=== PATIENT | female | born 1970 | race Hispanic/Latino ===

== ENCOUNTER 2020-10-01 08:21 | Inpatient (IN) | payer SELFPAY ==
[2020-10-01] MEDS ORDERED: ONDANSETRON 4 MG/2 ML VIAL ONE ×3 (09:50→16:00)
[2020-10-01] MEDS ORDERED: MORPHINE 4 MG/ML SYR ONE (09:50)
[2020-10-01] MEDS ORDERED: CEFAZOLIN/SWI 1gm 2 GM/20 ML SYR ONE (10:37)
[2020-10-01] MEDS ORDERED: HYDROMORPHONE HCL 1 MG/ML INJ ONE (10:50)
--- NOTE | 2020-10-01 11:01 | EDPHYS ---
Physician Documentation [facility] Name: Maite Dumont Age: 50 yrs Sex: Female : 1970 Arrival Date: 10/01/2020 Time: 08:57 Bed 8 Private MD: ED Physician Juan Carlos Albarran HPI: 10/01 10:26 This 50 yrs old Female presents to ER via EMS with complaints of Ankle Injury. ma2 10:26 The patient presents with decreased range of motion, a deformity, an injury. The ma2 complaints affect the right ankle. Associated signs and symptoms: Pertinent negatives: nausea, rash, tingling. Severity of symptoms: At their worst the symptoms were moderate, in the emergency department the symptoms are unchanged. The patient has not experienced similar symptoms in the past. tripped and fell, has right ankle pain . Historical: - Allergies: 09:00 No Known Allergies; hb - Immunization history:: Adult Immunizations up to date. - Social history:: Smoking status: Patient denies any tobacco usage or history of. Patient/guardian denies using alcohol, street drugs, The patient lives with family. - Family history:: not pertinent. ROS: 10:26 Constitutional: Negative for fever, chills, and weight loss, Eyes: Negative for injury, ma2 pain, redness, and discharge. 10:26 All other systems are negative. Exam: 10:26 Constitutional: This is a well developed, well nourished patient who is awake, alert, ma2 and in no acute distress. Chest/axilla: Normal chest wall appearance and motion. Nontender with no deformity. No lesions are appreciated. Cardiovascular: Regular rate and rhythm with a normal S1 and S2. No gallops, murmurs, or rubs. Normal PMI, no JVD. No pulse deficits. Respiratory: Lungs have equal breath sounds bilaterally, clear to auscultation and percussion. No rales, rhonchi or wheezes noted. No increased work of breathing, no retractions or nasal flaring. Abdomen/GI: Soft, non-tender, with normal bowel sounds. No distension or tympany. No guarding or rebound. No evidence of tenderness throughout. Back: No spinal tenderness. No costovertebral tenderness. Full range of motion. Skin: has puncture wound to medial aspect of right ankle, Warm, dry with normal turgor. Normal color with no rashes, no lesions, and no evidence of cellulitis. MS/ Extremity: right ankle swelling and pain, Pulses intact in pd and pd abd equal, no cyanosis. Neurovascular intact. Full, normal range of motion. Neuro: Awake and alert, GCS 15, oriented to person, place, time, and situation. Cranial nerves II-XII grossly intact. Motor strength 5/5 in all extremities. Sensory grossly intact. Cerebellar exam normal. Normal gait. Vital Signs: 08:58 BP 148 / 88; Pulse 68; Resp 16; Temp 97.8; Pulse Ox 100% on R/A; Pain 10/10; hb 09:45 BP 113 / 76; Pulse 55; Resp 20; Temp 98; Pulse Ox 96% ; sv 10:45 BP 152 / 86; Pulse 64; Resp 16; Temp 97.8; Pulse Ox 99% on R/A; Pain 5/10; hb Trauma Score (Adult): 09:45 Eye Response: spontaneous(1); Verbal Response: oriented(1); Motor Response: obeys sv commands(2); Systolic BP: > 89 mm Hg(4); Respiratory Rate: 10 to 29 per min(4); Thaddeus Score: 15; Trauma Score: 12 MDM: 08:59 Patient medically screened. ma2 10:54 Differential diagnosis: fracture, sprain, penetrating trauma, arthritis, cellulitis. ma2 Data reviewed: vital signs, nurses notes. Counseling: I had a detailed discussion with the patient and/or guardian regarding: the historical points, exam findings, and any diagnostic results supporting the discharge/admit diagnosis, the presence of at least one elevated blood pressure reading (>120/80) during this emergency department visit, the need for outpatient follow up. Response to treatment: the patient's symptoms have markedly improved after treatment. ED course: patient has open right ankle, discussed with dr. oquendo, he will take her to or, recommended admission to hospitalist . 10/01 10:54 Order name: CBC with Diff ma2 10/01 10:54 Order name: CMP ma2 10/01 11:33 Order name: Type and Screen EDMS 10/01 11:34 Order name: Protime (+INR) EDMS 10/01 11:34 Order name: PTT, Activated Partial Thromb EDMS 10/01 11:34 Order name: Vancomycin Level Trough EDMS 10/01 11:34 Order name: Vancomycin Peak EDMS 10/01 11:34 Order name: CBC with Automated Diff EDMS 10/01 11:34 Order name: CBC with Automated Diff EDMS 10/01 11:34 Order name: Comprehensive Metabolic Panel EDMS 10/01 11:34 Order name: Comprehensive Metabolic Panel EDMS 10/01 11:34 Order name: Magnesium EDMS 10/01 11:34 Order name: Magnesium EDMS 10/01 11:34 Order name: Phosphorus EDMS 10/01 09:22 Order name: Ankle Right 3 View XRAY oh2 10/01 09:22 Order name: Foot Right 3 View XRAY oh2 10/01 10:54 Order name: EKG; Complete Time: 10:54 oh2 10/01 10:54 Order name: Chest Single View XRAY oh2 10/01 11:34 Order name: Phosphorus EDMS 10/01 11:34 Order name: Protime (+INR) EDMS 10/01 11:34 Order name: Protime (+INR) EDMS 10/01 11:34 Order name: PTT, Activated Partial Thromb EDMS 10/01 11:34 Order name: PTT, Activated Partial Thromb EDMS 10/01 11:34 Order name: Urinalysis EDMS 10/01 11:51 Order name: COVID-19 : Document "Date of Symptom Onset" if Symptomatic. 3 10/01 09:40 Order name: IV Start; Complete Time: 09:40 10/01 10:54 Order name: NPO; Complete Time: 10:56 [facility] 10/01 11:34 Order name: CONS Pharmacy Consult EDMS 10/01 11:34 Order name: CONS Physician Consult ED[facility] 10/01 11:34 Order name: Heart Healthy EDMS Administered Medications: 09:40 Drug: Zofran (Ondansetron) 4 mg Route: IVP; Site: right antecubital; hb 10:13 Follow up: Response: No adverse reaction hb 09:41 Drug: morphine 4 mg Route: IVP; Site: right antecubital; hb 10:13 Follow up: Response: No adverse reaction hb 10:22 Drug: Ancef 2 grams Route: IVPB; Infused Over: 30 mins; Site: right antecubital; hb 11:12 Follow up: Response: No adverse reaction; IV Status: Completed infusion; IV Intake: 20mlhb 10:42 Drug: Dilaudid 1 mg Route: IVP; Site: right antecubital; hb 11:11 Follow up: Response: No adverse reaction hb 11:17 Drug: D5-NS 1000 ml Route: IV; Rate: 125 ml/hr; Site: right antecubital; hb 12:10 Follow up: Response: No adverse reaction; IV Status: Completed infusion; IV Intake: hb 125ml Disposition: 10/01/20 11:00 Hospitalization ordered by Juan Carlos Feldman for Inpatient Admission. Preliminary diagnosis are Unspecified open wound, right ankle, Bimalleolar fracture of lower leg - right ankle . - Bed requested for Telemetry/MedSurg (Inpatient). - Status is Inpatient Admission. hb - Condition is Stable. - Problem is new. - Symptoms are unchanged. Signatures: Dispatcher [employer] EDMS Niki Shelby RN RN Juan Carlos Albarran MD MD ma2 Corrections: (The following items were deleted from the chart) 10:55 10:26 Constitutional: This is a well developed, well nourished patient who is awake, ma2 alert, and in no acute distress. Chest/axilla: Normal chest wall appearance and motion. Nontender with no deformity. No lesions are appreciated. Cardiovascular: Regular rate and rhythm with a normal S1 and S2. No gallops, murmurs, or rubs. Normal PMI, no JVD. No pulse deficits. Respiratory: Lungs have equal breath sounds bilaterally, clear to auscultation and percussion. No rales, rhonchi or wheezes noted. No increased work of breathing, no retractions or nasal flaring. Abdomen/GI: Soft, non-tender, with normal bowel sounds. No distension or tympany. No guarding or rebound. No evidence of tenderness throughout. Back: No spinal tenderness. No costovertebral tenderness. Full range of motion. Skin: Warm, dry with normal turgor. Normal color with no rashes, no lesions, and no evidence of cellulitis. MS/ Extremity: right ankle swelling and pain, Pulses intact in pd and pd abd equal, no cyanosis. Neurovascular intact. Full, normal range of motion. Neuro: Awake and alert, GCS 15, oriented to person, place, time, and situation. Cranial nerves II-XII grossly intact. Motor strength 5/5 in all extremities. Sensory grossly intact. Cerebellar exam normal. Normal gait. ma2 12:13 11:00 Hospitalization Ordered by Juan Carlos Feldman MD for Inpatient Admission. Preliminary hb diagnosis is Unspecified open wound, right ankle; Bimalleolar fracture of lower leg - right ankle . Bed requested for Telemetry/MedSurg (Inpatient). Status is Inpatient Admission. Condition is Stable. Problem is new. Symptoms are unchanged. ma2
--- NOTE | 2020-10-01 11:01 | ER ---
Nurse's Notes [facility] Name: Maite Dumont Age: 50 yrs Sex: Female : 1970 Arrival Date: 10/01/2020 Time: 08:57 Bed 8 Private MD: Diagnosis: Unspecified open wound, right ankle;Bimalleolar fracture of lower leg-right ankle Presentation: 10/01 08:58 Chief complaint: EMS states: Slipped on tile floor while carrying out the trash, c/o hb right ankle pain 10/10. Obvious deformity noted to right ankle. Splint in place. Coronavirus screen: At this time, the client does not indicate any symptoms associated with coronavirus-19. Ebola Screen: No symptoms or risks identified at this time. Initial Sepsis Screen: Does the patient meet any 2 criteria? No. Patient's initial sepsis screen is negative. Does the patient have a suspected source of infection? No. Patient's initial sepsis screen is negative. Risk Assessment: Do you want to hurt yourself or someone else? Patient reports no desire to harm self or others. Onset of symptoms was October 01, 2020. 08:58 Method Of Arrival: EMS: [facility] hb 08:58 Acuity: ERIN 3 hb Triage Assessment: 09:00 General: Appears in no apparent distress. uncomfortable, Behavior is calm, cooperative. hb Pain: Pain currently is 10 out of 10 on a pain scale. EENT: No signs and/or symptoms were reported regarding the EENT system. Neuro: Level of Consciousness is awake, alert, obeys commands, Oriented to person, place, time, situation. Cardiovascular: Capillary refill < 3 seconds Patient's skin is warm and dry. Respiratory: Respiratory effort is even, unlabored, Respiratory pattern is regular, symmetrical. GI: No signs and/or symptoms were reported involving the gastrointestinal system. : No signs and/or symptoms were reported regarding the genitourinary system. Derm: Skin is pink, warm \T\ dry. Musculoskeletal: Reports pain in right ankle. Historical: - Allergies: 09:00 No Known Allergies; hb - Immunization history:: Adult Immunizations up to date. - Social history:: Smoking status: Patient denies any tobacco usage or history of. Patient/guardian denies using alcohol, street drugs, The patient lives with family. - Family history:: not pertinent. Screenin:01 Abuse screen: Denies threats or abuse. Denies injuries from another. Nutritional hb screening: No deficits noted. Tuberculosis screening: No symptoms or risk factors identified. Fall Risk None identified. Assessment: 09:01 General: see triage assessment. hb 10:00 Reassessment: Patient appears in no apparent distress at this time. Patient and/or hb family updated on plan of care and expected duration. Pain level reassessed. Patient is alert, oriented x 3, equal unlabored respirations, skin warm/dry/pink. 11:00 Reassessment: Patient appears in no apparent distress at this time. Patient and/or hb family updated on plan of care and expected duration. Pain level reassessed. Patient is alert, oriented x 3, equal unlabored respirations, skin warm/dry/pink. 12:00 Reassessment: Patient appears in no apparent distress at this time. No changes from previously documented assessment. Patient and/or family updated on plan of care and expected duration. Pain level reassessed. Patient is alert, oriented x 3, equal unlabored respirations, skin warm/dry/pink. Vital Signs: 08:58 BP 148 / 88; Pulse 68; Resp 16; Temp 97.8; Pulse Ox 100% on R/A; Pain 10/10; hb 09:45 BP 113 / 76; Pulse 55; Resp 20; Temp 98; Pulse Ox 96% ; sv 10:45 BP 152 / 86; Pulse 64; Resp 16; Temp 97.8; Pulse Ox 99% on R/A; Pain 5/10; hb Trauma Score (Adult): 09:45 Eye Response: spontaneous(1); Verbal Response: oriented(1); Motor Response: obeys sv commands(2); Systolic BP: > 89 mm Hg(4); Respiratory Rate: 10 to 29 per min(4); Creswell Score: 15; Trauma Score: 12 ED Course: 08:57 Patient arrived in ED. hb 08:59 Juan Carlos Albarran MD is Attending Physician. ma2 09:00 Triage completed. hb 09:00 Arm band placed on. hb 09:01 Patient has correct armband on for positive identification. Bed in low position. Call light in reach. 09:39 Niki Shelby RN is Primary Nurse. hb 09:41 Inserted saline lock: 20 gauge in right antecubital area, using aseptic technique. hb 10:[address] Willis with Dr. Albarran for patient transfer consultation. eb 10:37 Ankle Right 3 View XRAY In Process Unspecified. EDMS 11:00 Juan Carlos Feldman MD is Hospitalizing Provider. ma2 11:16 Chest Single View XRAY In Process Unspecified. EDMS 12:10 No provider procedures requiring assistance completed. Patient admitted, IV remains in hb place. Administered Medications: 09:40 Drug: Zofran (Ondansetron) 4 mg Route: IVP; Site: right antecubital; hb 10:13 Follow up: Response: No adverse reaction hb 09:41 Drug: morphine 4 mg Route: IVP; Site: right antecubital; hb 10:13 Follow up: Response: No adverse reaction hb 10:22 Drug: Ancef 2 grams Route: IVPB; Infused Over: 30 mins; Site: right antecubital; hb 11:12 Follow up: Response: No adverse reaction; IV Status: Completed infusion; IV Intake: 20mlhb 10:42 Drug: Dilaudid 1 mg Route: IVP; Site: right antecubital; hb 11:11 Follow up: Response: No adverse reaction hb 11:17 Drug: D5-NS 1000 ml Route: IV; Rate: 125 ml/hr; Site: right antecubital; hb 12:10 Follow up: Response: No adverse reaction; IV Status: Completed infusion; IV Intake: hb 125ml Intake: 09:45 PO: 0ml; Total: 0ml. sv 11:12 IV: 20ml; Total: 20ml. hb 12:10 IV: 125ml; Total: 145ml. hb Output: 09:45 Urine: 0ml; Total: 0ml. sv Outcome: 11:00 Decision to Hospitalize by Provider. ma2 12:10 Admitted to OR accompanied by nurse, via stretcher, with chart. hb 12:10 Condition: stable 12:10 Instructed on the need for admit, Demonstrated understanding of instructions. 12:13 Patient left the ED. hb Signatures: Dispatcher [employer] Marline Ryder RN RN Niki Shelby RN RN Juan Carlos Albarran MD MD [facility] Candice Saldana
[2020-10-01] MEDS ORDERED: D5 0.9 NS 1,000 ML IV ONE (11:23)
[2020-10-01] MEDS ORDERED: ACETAMINOPHEN 500 MG TAB PO PRN (11:28)
[2020-10-01] MEDS ORDERED: ONDANSETRON 4 MG/2 ML VIAL IV PRN (11:28)
[2020-10-01 11:40] LABS: Hematocrit 40.8 % (36.0-45.0); Lymphocytes % 20.1 % (15.3-44.8); MPV 8.7 fL (7.6-11.3); RBC Red Blood Cell Count 4.68 M/uL (3.86-4.86)
[2020-10-01 11:49] LABS: Albumin 3.3 g/dL (3.4-5.0); Bilirubin Total 0.2 mg/dL (0.2-1.0); Potassium 3.9 mmol/L (3.5-5.1); Protein, Total 7.9 g/dL (6.4-8.2)
[2020-10-01] MEDS: NA CHLORIDE 0.9% 1,000 ML IV SCH (12:00)
[2020-10-01] MEDS ORDERED: PIPER/TAZO/NS 3.375gm 3.375 GM/100 ML BAG IVPB ONE (12:00)
[2020-10-01] MEDS ORDERED: LIDOCAINE 2% MPF 5 ML VIAL ONE (12:12)
[2020-10-01] MEDS ORDERED: propofoL 200 MG/20 ML VIAL IV ONE (12:12)
[2020-10-01] MEDS ORDERED: FENTANYL CITR 100 MCG/2 ML ONE ×2 (12:12→14:36)
--- NOTE | 2020-10-01 12:32 | RAD REPORT ---
EXAM DESCRIPTION: RAD - Ankle Right 3 View - 10/01/2020 9:54 am CLINICAL HISTORY: DEFORMITY COMPARISON: No comparisons FINDINGS: Oblique fracture is present in the distal fibula immediately proximal to the tibiotalar marshall int line. Transverse fracture is present through the medial malleolus. There is approximately 6 mm of lateral displacement of the talar dome relative to the tibial plafond. No posterior malleolus fractu re seen. Patient has a large plantar spur. No joint effusion seen. Prominent anterior and lateral sof t tissue swelling. IMPRESSION: Distal right fibular fracture and medial malleolus fracture with approximately 6 mm late ral displacement of the dome of the talus.
--- NOTE | 2020-10-01 12:35 | RAD REPORT ---
EXAM DESCRIPTION: RAD - Chest Single View - 10/01/2020 11:16 am CLINICAL HISTORY: pre-op, ankle fracture COMPARISON: None TECHNIQUE: AP portable chest image was obtained 10/01/2020 11:16 am . FINDINGS: Lungs are clear. Heart and vasculature are normal. No measurable pleural effusion and no p neumothorax. No acute bony abnormality seen. No acute aortic findings suspected. IMPRESSION: No acute cardiopulmonary process.
[2020-10-01] MEDS ORDERED: VANCOMYCIN 1.25 GM in NA CHLORIDE 0.9% 250 ML IVPB SCH (13:00)
[2020-10-01] MEDS: ENOXAPARIN 40 MG/0.4 ML SQ SCH (13:00)
[2020-10-01] MEDS ORDERED: CEFAZOLIN SODIUM 1 GM/VIAL ONE (13:14)
[2020-10-01] MEDS ORDERED: KETOROLAC 30 MG/ML INJ ONE (13:16)
[2020-10-01] MEDS ORDERED: dexAMETHasone 10 MG/ML VIAL ONE (13:16)
[2020-10-01] MEDS ORDERED: KETAMINE HCL 500 MG/5 ML VIAL ONE (13:25)
--- NOTE | 2020-10-01 14:44 | CON ---
Date of Consultation: 10/01/2020 Reason For Consultation: Right open ankle fracture. History Of Present Illness: She is a 50-year-old female who presented to the ER today after sustaining a fall and twisting injury to her right ankle with subsequent pain and deformity to her right ankle. She was brought in the ER, had x-rays, which demonstrated a bimalleolar ankle fracture and a small poke hole for anterior medial ankle consistent with an open fracture pattern. The patient received antibiotics in the emergency room. She denies any other musculoskeletal complaints at this time. Review of Systems: As above, otherwise negative. Past Medical History: Includes hypertension. Physical Examination: General: No apparent distress. HEENT: Normocephalic, atraumatic. Neck: Supple. Cardiovascular: Brisk cap refill to all digits. Chest: Nonlabored breathing. Abdomen: Nondistended. Psychiatric: Responsive to exam. Musculoskeletal: Right ankle tenderness to palpation over the medial and lateral ankle, mild swelling, approximately a 2 mm poke hole over the anterior medial ankle. No active bleeding noted at this time. Palpable dorsalis pedis and posterior tibial pulses. No tenderness to palpation of the knee or range of motion of the hip. Left lower extremity functional range of motion without pain. No gross deformities. No obvious dislocation. Bilateral upper extremities, functional range of motion without pain. No gross deformities. No obvious dislocations. Diagnostic Studies: X-rays of the right ankle demonstrate a bimalleolar ankle fracture consistent with SER IV fracture pattern. Assessment And Plan: Maite is a 50-year-old female with a grade 1 open bimalleolar right ankle fracture. I discussed with the patient at length risks, benefits associated with operative and nonoperative treatment including pain, bleeding, infection as well as nonunion. She expressed understanding. We will proceed with I and D and ORIF of her right bimalleolar ankle fracture. She will be nonweightbearing for 6 weeks. She has already been given antibiotics in the ER. CV/MODL Voice ID: [id number] Report ID: [id number] NICHOLAS
--- NOTE | 2020-10-01 15:24 | RAD REPORT ---
EXAM DESCRIPTION: RAD - Ankle Right 2 View - 10/01/2020 3:19 pm FINDINGS: They are 48 portable C-arm views obtained during fluoroscopic assisted placement of fractu re fixation hardware. Images show stepwise placement of hardware. No suspicious or unexpected finding . Fluoro time was 1.4 minutes. Calculated cumulative dose was 2.19 mGy.
--- NOTE | 2020-10-01 15:34 | P.BOP ---
Preoperative diagnosis: right open bimalleolar ankle fracture Postoperative diagnosis: same Primary procedure: irrigation and debridement right open bimalleolar ankle fracture Secondary procedure: open reduction internal fixation right bimalleolar ankle fracture Estimated blood loss: 20 cc Specimen: none Findings: see dictation Anesthesia: General Complications: None Implants: 6 hole third tubular plate, Acumed medial malleolus hook plate Fluids & blood products: per anesthesia record; TT: 118 @ 300 mmHg Transferred to: Recovery Room Condition: Good
[2020-10-01] MEDS ORDERED: ONDANSETRON 4 MG/2 ML VIAL IV ONE (15:45)
[2020-10-01] MEDS ORDERED: HYDROMORPHONE HCL 2 MG/ML inj IV ONE (15:46)
[2020-10-01] MEDS ORDERED: DOCUSATE NA 100 MG CAP PO PRN (15:48)
[2020-10-01] MEDS ORDERED: TRAMADOL HCL 50 MG TAB PO PRN (15:48)
[2020-10-01] MEDS: HYDROMORPHONE HCL 2 MG/ML inj ONE ×3 (15:52→16:12)
[2020-10-01] MEDS ORDERED: MORPHINE 2 MG/ML SYR IV PRN (15:56)
[2020-10-01] MEDS ORDERED: Ringers Lactate 1,000 ML IV ONE (16:10)
--- NOTE | 2020-10-01 16:32 | RAD REPORT ---
EXAM DESCRIPTION: RAD - Ankle Right 2 View - 10/01/2020 4:12 pm CLINICAL HISTORY: postop, ankle fracture COMPARISON: Ankle Right 2 View dated 10/01/2020 FINDINGS: AP and cross-table lateral views of the right ankle pain following placement of hardware. Cast material is in place. Surgical hardware is in place fixing previously detailed distal fibula and medial malleolus fractures. No suspicious or unexpected finding.
[2020-10-01 19:38] VITALS: BMI 42.5
[2020-10-01] MEDS: CEFAZOLIN/SWI 2gm 2 GM/20 ML SYR IVP SCH (19:50)
[2020-10-02] MEDS: CEFAZOLIN/SWI 2gm 2 GM/20 ML SYR IVP SCH ×2 (01:01→06:27)
[2020-10-02] MEDS: NA CHLORIDE 0.9% 1,000 ML IV SCH ×3 (01:20→15:59)
[2020-10-02 05:56] LABS: Absolute Lymphocytes (CBC) 2.1 K/uL (0.7-4.9); Basophils % 0.7 % (0-1.3); Hematocrit 37.1 % (36.0-45.0); Lymphocytes % 13.2 % (15.3-44.8); MPV 8.7 fL (7.6-11.3)
[2020-10-02 06:10] LABS: Albumin 2.9 g/dL (3.4-5.0); Bilirubin Total 0.2 mg/dL (0.2-1.0); Phosphorus 3.3 mg/dL (2.5-4.9); Potassium 3.6 mmol/L (3.5-5.1); Protein, Total 6.8 g/dL (6.4-8.2)
[2020-10-02] MEDS: ENOXAPARIN 40 MG/0.4 ML SQ SCH (08:58)
[2020-10-02] MEDS ORDERED: POTASSIUM CL SA 10 MEQ TAB PO ONE (09:00)
--- NOTE | 2020-10-02 09:12 | P.HP ---
Certification for Inpatient Patient admitted to: Inpatient With expected LOS: >2 Midnights Patient will require the following post-hospital care: None Practitioner: I am a practitioner with admitting privileges, knowledge of patient current condition, hospital course, and medical plan of care. Services: Services provided to patient in accordance with Admission requirements found in Title 42 Section 412.3 of the Code of Federal Regulations Patient History Date of Service: 10/01/20 Reason for admission: Patient status post fall with open ankle fracture History of Present Illness: Patient is a 50-year-old female who came to the hospital after falling. 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 Her ankle twisted underneath her and she was not able to ambulate. She noticed that she had a sore on her ankle and and was hurting severely. She was brought into the emergency room and x-rays revealed an open ankle fracture. Patient has a history of hypertension but no chest pain. She has never had any cardiac issues. She will be low risk for any cardiopulmonary complications. Spoke with orthopedic and plan is take her to the operating room shortly. Allergies No Known Allergies Allergy (Verified 10/01/20 13:37) Home Medications: Losartan Potassium [Cozaar] 50 mg PO BID 10/01/20 - Past Medical/Surgical History Has patient received pneumonia vaccine in the past: No Diabetic: No -: HTN -: X2 -: Cholecystectomy - Family History Father Family History: Reviewed- Non-Contributory - Social History Smoking Status: Never smoker Alcohol use: No CD- Drugs: No Place of Residence: Home Review of Systems 10-point ROS is otherwise unremarkable Physical Examination - Vital Signs Temperature: 97.5 F Blood Pressure: 155/84 Pulse: 68 Respirations: 16 Pulse Ox (%): 96 - Physical Exam General: Alert, In no apparent distress, Oriented x3 HEENT: Atraumatic, PERRLA, Mucous membr. moist/pink, EOMI, Sclerae nonicteric Neck: Supple, 2+ carotid pulse no bruit, No LAD, Without JVD or thyroid abnormality Respiratory: Diminished, Crackles/rales Cardiovascular: Regular rate/rhythm, Normal S1 S2, Systolic murmur Gastrointestinal: Normal bowel sounds, Soft and benign, Non-distended, No tenderness Musculoskeletal: No clubbing, No swelling, No tenderness Integumentary: No rashes Neurological: Normal gait, Normal speech, Normal strength at 5/5 x4 extr, Normal tone, Sensation intact, Cranial nerves 3-12 intact, Normal affect Lymphatics: No axilla or inguinal lymphadenopathy - Studies Laboratory Data (last 24 hrs) 10/01/20 11:15: Sodium 140, Potassium 3.9, BUN 12, Creatinine 0.79, Glucose 127 H, Total Bilirubin 0.2, AST 19, ALT 21, Alkaline Phosphatase 109 10/01/20 11:15: WBC 14.90 H, Hgb 13.3, Hct 40.8, Plt Count 420 H Assessment & Plan - Problems (Diagnosis) (1) Open right ankle fracture Current Visit: Yes Status: Acute (2) History of hypertension Current Visit: Yes Status: Acute - Plan Plan: 1. Continue with gentle hydration 2. Continue with IV antibiotics 3. Continue with pain control 4. Resume blood pressure medication 5. Monitor on telemetry 6. GI and DVT prophylaxis Discharge Plan: Home Plan to discharge in: Greater than 2 days - Advance Directives Does patient have a Living Will: No Does patient have a Durable POA for Healthcare: No - Code Status/Comfort Care Code Status Assessed: Yes Code Status: Full Code Critical Care: No Time Spent Managing PTS Care (In Minutes): 45
--- NOTE | 2020-10-02 09:16 | P.PN ---
Subjective Date of Service: 10/02/20 Patient is feeling better. Pain is better controlled. Continue with antibiotics and blood pressure is elevated and resume BP medication. Consultants and recommendations. Possible discharge over the next 48 hrs. Review of Systems 10-point ROS is otherwise unremarkable Physical Examination - Vital Signs Temperature: 97.5 F Blood Pressure: 155/84 Pulse: 68 Respirations: 16 Pulse Ox (%): 96 - Physical Exam General: Alert, In no apparent distress, Oriented x3 HEENT: EOMI Respiratory: Clear to auscultation bilaterally, Normal air movement Cardiovascular: Regular rate/rhythm, Normal S1 S2, No murmurs Gastrointestinal: Normal bowel sounds, Soft and benign, Non-distended, No tenderness Musculoskeletal: No clubbing, No swelling, No tenderness Neurological: Sensation intact, Cranial nerves 3-12 intact - Studies Laboratory Data (last 24 hrs) 10/01/20 11:15: Sodium 140, Potassium 3.9, BUN 12, Creatinine 0.79, Glucose 127 H, Total Bilirubin 0.2, AST 19, ALT 21, Alkaline Phosphatase 109 10/01/20 11:15: WBC 14.90 H, Hgb 13.3, Hct 40.8, Plt Count 420 H Medications List Reviewed: Yes Assessment & Plan - Problems (Diagnosis) (1) Open right ankle fracture Current Visit: Yes Status: Acute (2) History of hypertension Current Visit: Yes Status: Acute - Plan Plan: Continue with plan of care as mentioned below 1. Continue with gentle hydration 2. Continue with IV antibiotics 3. Continue with pain control 4. Resume blood pressure medication 5. Monitor on telemetry 6. GI and DVT prophylaxis Discharge Plan: Home Plan to discharge in: Greater than 2 days - Advance Directives Does patient have a Living Will: No Does patient have a Durable POA for Healthcare: No - Code Status/Comfort Care Code Status: Full Code Critical Care: No Time Spent Managing PTS Care (In Minutes): 35
[2020-10-02] MEDS: LOSARTAN POTASSIUM 50 MG TABLET PO SCH ×2 (10:17→22:07)
--- NOTE | 2020-10-02 17:22 | P.PN ---
Subjective Date of Service: 10/02/20 Chief Complaint: Patient status post fall with open ankle fracture Subjective: Improving, Working w/ PT pain controlled Physical Examination - Vital Signs Temperature: 97.6 F Blood Pressure: 140/65 Pulse: 67 Respirations: 16 Pulse Ox (%): 97 - Physical Exam General: Alert, In no apparent distress Musculoskeletal: Other (RLE: moves toes grossly; splint in place with mild serosanguinous drainage; bcr all digits) - Studies Medications List Reviewed: Yes Assessment And Plan - Plan Maite is a 50 yo female s/p I&D, ORIF of her right open ankle fracture -ok to d/c home tomorrow after AM PT -f/u in my clinic in 2 weeks for reevaluation, suture removal and xrays of the right ankl -remain NWB of the RLE
[2020-10-02] MEDS: HYDROCODONE/APAP 7.5/325 MG TAB PO PRN (22:07)
[2020-10-03 00:08] VITALS: O2SAT 93
[2020-10-03 04:55] LABS: Absolute Lymphocytes (CBC) 5.1 K/uL (0.7-4.9); Hematocrit 35.3 % (36.0-45.0); Lymphocytes % 35.7 % (15.3-44.8); MPV 8.8 fL (7.6-11.3); RBC Red Blood Cell Count 3.97 M/uL (3.86-4.86)
[2020-10-03 05:11] LABS: Potassium 3.8 mmol/L (3.5-5.1)
--- NOTE | 2020-10-03 07:57 | P.DS ---
Admission Date: 10/01/20 Discharge Date: 10/03/20 Primary Care Provider: none Disposition: ROUTINE DISCHARGE Discharge Condition: GOOD Reason for Admission: Patient status post fall with open ankle fracture Consultations: Orthopedics-Dr. Willis Procedures: Xray: COMPARISON: No comparisons FINDINGS: Oblique fracture is present in the distal fibula immediately proximal to the tibiotalar joint line. Transverse fracture is present through the medial malleolus. There is approximately 6 mm of lateral displacement of the talar dome relative to the tibial plafond. No posterior malleolus fracture seen. Patient has a large plantar spur. No joint effusion seen. Prominent anterior and lateral soft tissue swelling. IMPRESSION: Distal right fibular fracture and medial malleolus fracture with approximately 6 mm lateral displacement of the dome of the talus. Operative note: Date: 10/01/2020 Surgeon: Dr. Sergio Willis Preoperative diagnosis: Right open bimalleolar ankle fracture Postoperative diagnosis: Same Primary procedure: Irrigation and debridement to right open bimalleolar ankle fracture Secondary procedure: Open reduction internal fixation right bimalleolar ankle fracture Estimated blood loss: 20 cc Specimen: None Anesthesia: General Complications: None Implants: 6 hole 1thrid tubular plate, AcuMed medial malleolus hook plate Condition: Good Medical Problem List: Fall leading to open right bimalleolar ankle fracture status post irrigation/debridement of the right open malleolar ankle fracture and open reduction internal fixation right bimalleolar ankle fracture Hypertension Obesity, BMI 42.5 Brief History of Present Illness: 50-year-old female who came to the hospital after falling. 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 Her ankle twisted underneath her and she was not able to ambulate. She noticed that she had a sore on her ankle and and was hurting severely. She was brought into the emergency room and x-rays revealed an open ankle fracture. Patient has a history of hypertension but no chest pain. She has never had any cardiac issues. She will be low risk for any cardiopulmonary complications. Orthopedist was consulted to further address. Patient admitted for treatment. Hospital Course: Patient presented to the ER after a fall. Patient found to have open right bimalleolar ankle fracture. Patient was admitted for further evaluation and treatment. Patient seen and evaluated by orthopedics. Orthopedic recommended surgical intervention. Patient had irrigation debridement of the right open malleolar ankle fracture, then an open reduction internal fixation was done. Patient tolerated the procedure well. Prior to discharge physical therapy will work with patient with recommendations. Patient will need a follow up with o rthopedics in 2 weeks. Patient will need to continue with nonweightbearing on the right lower extremity. Fall precautions in place. Patient may use walker or crutches. Patient may take Tylenol or ibuprofen as needed for pain. Sutures and a recheck x-ray will be done in 2 weeks with Orthopedics. Education will be provided prior to discharge. Patient with hypertension. At discharge she will continue with her medication of losartan 50 mg 1 pill twice daily. Recommend to maintain blood pressure less 150/80. Further adjustment can be done by her PCP. Vital Signs/Physical Exam: Temp Pulse Resp BP Pulse Ox 97.5 F 59 14 127/68 93 10/03/20 04:00 10/03/20 04:00 10/03/20 04:00 10/03/20 04:00 10/03/20 04:00 General: Alert, In no apparent distress, Oriented x3, Cooperative HEENT: Atraumatic Neck: Supple Respiratory: Clear to auscultation bilaterally, Normal air movement Cardiovascular: Normal pulses, Regular rate/rhythm Gastrointestinal: Normal bowel sounds, Soft and benign, Non-distended, No tenderness, No masses, No rebound, No guarding Musculoskeletal: No erythema, No tenderness, No warmth Integumentary: Other (Bandages to the right lower extremity noted) Neurological: Normal speech, Normal strength at 5/5 x4 extr, Normal tone, Normal affect Laboratory Data at Discharge: WBC 14.20 K/uL (4.3-10.9) H 10/03/20 04:18 Hgb 11.1 g/dL (12.0-15.0) L 10/03/20 04:18 Hct 35.3 % (36.0-45.0) L 10/03/20 04:18 Plt Count 361 K/uL (152-406) 10/03/20 04:18 PT Cancelled 10/01/20 11:32 INR Cancelled 10/01/20 11:32 APTT Cancelled 10/01/20 11:32 Sodium 140 mmol/L (136-145) 10/03/20 04:18 Potassium 3.8 mmol/L (3.5-5.1) 10/03/20 04:18 BUN 14 mg/dL (7-18) 10/03/20 04:18 Creatinine 0.70 mg/dL (0.55-1.3) 10/03/20 04:18 Glucose 127 mg/dL (74-106) H 10/03/20 04:18 Phosphorus 3.3 mg/dL (2.5-4.9) 10/02/20 05:11 Magnesium 2.0 mg/dL (1.8-2.4) 10/02/20 05:11 Total Bilirubin 0.2 mg/dL (0.2-1.0) 10/02/20 05:11 AST 13 U/L (15-37) L 10/02/20 05:11 ALT 19 U/L (12-78) 10/02/20 05:11 Alkaline Phosphatase 84 U/L (45-117) 10/02/20 05:11 Home Medications: Losartan Potassium [Cozaar*] 50 mg PO BID 10/01/20 Patient Discharge Instructions: Follow up with PCP in 1 week to follow up this hospitalization. Patient presented to the ER after a fall. Patient found to have open right bimalleolar ankle fracture. Patient was admitted for further evaluation and treatment. Patient seen and evaluated by orthopedics. Orthopedic recommended surgical intervention. Patient had irrigation debridement of the right open malleolar ankle fracture, then an open reduction internal fixation was done. Patient tolerated the procedure well. Prior to discharge physical therapy will work with patient with recommendations. Patient will need a follow up with orthopedics in 2 weeks. Patient will need to continue with nonweightbearing on the right lower extremity. Fall precautions in place. Patient may use walker or crutches. Patient may take Tylenol or ibuprofen as needed for pain. Sutures and a recheck x-ray will be done in 2 weeks with Orthopedics. Education will be provided prior to discharge. Patient with hypertension. At discharge she will continue with her medication of losartan 50 mg 1 pill twice daily. Recommend to maintain blood pressure less 150/80. Further adjustment can be done by her PCP. Diet: AHA Activity: Non-weight bearing (Right lower extremity) Followup: NONE,NONE [Primary Care Provider] - Time spent managing pt's care (in minutes): 55
[2020-10-03] MEDS: LOSARTAN POTASSIUM 50 MG TABLET PO SCH (08:05)
[2020-10-03] MEDS: ENOXAPARIN 40 MG/0.4 ML SQ SCH (08:06)
[2020-10-03] MEDS: HYDROCODONE/APAP 7.5/325 MG TAB PO PRN (08:12)
[2020-10-03 08:55] VITALS: BP 118/67; TEMP 97.1
[2020-10-03] MEDS ORDERED: POTASSIUM CL SA 10 MEQ TAB PO ONE (09:00)
--- NOTE | 2020-10-03 14:12 | OP ---
Surgeon: Sergio Willis MD Postoperative Diagnosis: Right bimalleolar ankle fracture. Postoperative Diagnosis: Right bimalleolar ankle fracture. Procedure Performed: 1. Irrigation and debridement of right open bimalleolar ankle fracture. 2. Open reduction and internal fixation of right open bimalleolar ankle fracture. Anesthesia: General LMA. Fluids: Per Anesthesia record. Estimated Blood Loss: 20 cc. Complications: None, Implants: 1. Six hole third tubular plate. 2. Acumed medial ankle footplate. Tourniquet Time: 180 minutes at 300 mmHg. Indication For Procedure: Maite is a 50-year-old female, who presented to the ER today after sustaining a twisting injury to her right ankle with subsequent pain and deformity to her right ankle. She was brought to the emergency room with diagnosis of right bimalleolar ankle fracture. She continued to have a small poke hole over the anterior medial ankle consistent with grade I open fracture. She was given antibiotics in the emergency room and I was called in and I discussed with the patient at length risks and benefits associated with operative and nonoperative treatment. Given her open injury, I recommended irrigation and debridement as well as open reduction and internal fixation. She expressed understanding and elected to proceed with operative treatment. Description Of Procedure: After informed consent was obtained, the patient was identified in the preoperative holding area. The right lower extremity was marked. The patient was then brought back to the operating room, transferred to the operative table in a supine fashion and placed under general LMA anesthesia. The right lower extremity was then prepped and draped in usual sterile fashion. Time-out was initiated and correct patient and procedure were confirmed and identified. The patient did receive her preoperative prophylactic antibiotics. First, attention was taken to her open injury, which she had approximately a 2 mm poke hole over the anterior medial ankle. The laceration was extended 1 cm distally and proximally. The wound was then irrigated thoroughly with 3 L of normal saline using Cysto tubing. The bone was then debrided using a curette. Next, attention was taken to the lateral malleolus where approximately a 10 cm longitudinal incision was made over the distal fibula. Dissection was taken out of the bone. The fracture was identified. It was irrigated with normal saline. The fracture was then reduced using a pointed reduction clamp. Given the standard oblique fracture pattern, the fracture was reduced and an interfragmentary lag screw was then placed using standard AO technique. Compression was noted at the fracture site. Next, a six hole third tubular neutralization plate was placed and proper reduction and placement was confirmed using fluoroscopy. Two 4.0 cancellous screw were placed distally in unicortical fashion and three 3.5 cortical screws were placed proximally in bicortical fashion. After this was completed fluoroscopy was used to confirm reduction of the fracture both medially and laterally. The wound was then irrigated thoroughly with normal saline and pointed reduction clamp was then used to perform Cotton's test which demonstrated the syndesmosis was intact. Subcutaneous tissue was approximated using 2-0 Vicryl. Skin was approximated using 3-0 nylon. Next, attention was taken to medial malleolus where approximately a 5 cm longitudinal incision was made centered over the medial malleolus. Dissection was then taken down to the fracture. The fracture was then held, reduced with a pointed reduction clamp. The footplate was then placed, which held the reduction and this was confirmed using fluoroscopy in both AP and lateral views. The footplate was then fixed to the proximal tibia by placing a 3.5 cortical screw in bicortical fashion and a locking peg was then placed distally through the hook into the medial malleolus after the hook placement was bent into position. The wounds were then irrigated thoroughly with normal saline. Subcutaneous tissue was approximated using a 2-0 Vicryl. Skin was approximated using a 3-0 nylon. Sterile dressings were applied. The patient was placed in a posterior stirrup splint, tourniquet was let down, awakened, and transferred to PACU in stable condition. Postoperative Plan: She will be nonweightbearing on the right lower extremity. Physical therapy will be consulted to aid with mobilization and she will be okay to discharge once mobilizing normal with physical therapy. CV/MODL Voice ID: [id number] Report ID: [id number] NICHOLAS
== END 2020-10-03 13:56 | disposition home or self-care (01) | DRG 493 ==
LOC: ER 08:21 → ERHOLD 11:28 → 2ND 13:36
PROVIDERS: ADMIT Hospitalist; ATTEND Family Medicine
PROC: 0QSG04Z Reposition Right Tibia with Internal Fixation Device, Open Approach (ICD-10-PCS; principal; 2020-10-01 12:00)
DX: S82.841B Displaced bimalleolar fracture of right lower leg, initial encounter for open fracture type I or II (principal); Z68.41 Body mass index [BMI] 40.0-44.9, adult; E66.9 Obesity, unspecified; I10 Essential (primary) hypertension; W01.0XXA Fall on same level from slipping, tripping and stumbling without subsequent striking against object, initial encounter; Z79.899 Other long term (current) drug therapy; Z90.49 Acquired absence of other specified parts of digestive tract; Z20.822 Contact with and (suspected) exposure to COVID-19
CPT/HCPCS: 36415; 71045; 80048; 80053; 83735; 84100; 85025; 94010; 96365; 96367; 96375; 97116; 97161; 97530; 99285; J0690; J1100; J1170; J1650; J2405; J2704; J3010; J3370; J7030; J7042; J7050; J7120; U0003

== ENCOUNTER 2020-10-30 16:52 | Inpatient (IN) | payer SELFPAY ==
[2020-10-30 19:27] LABS: Absolute Lymphocytes (CBC) 1.6 K/uL (0.7-4.9); Basophils % 0.5 % (0-1.3); Hematocrit 41.9 % (36.0-45.0); MPV 8.6 fL (7.6-11.3); RBC Red Blood Cell Count 4.86 M/uL (3.86-4.86)
[2020-10-30 19:30] LABS: Protime INR 1.11
[2020-10-30] MEDS ORDERED: METHYLPREDNISOLONE 125 MG INJ ONE (19:40)
[2020-10-30] MEDS ORDERED: IPRATROPIUM BROM 0.5MG/2.5ML ONE (19:40)
[2020-10-30] MEDS ORDERED: ALBUTEROL 2.5 MG/3 ML NEB SOL ONE (19:41)
[2020-10-30 19:54] LABS: ALT/SGPT 56 U/L (12-78); AST/SGOT 62 U/L (15-37); Albumin 3.4 g/dL (3.4-5.0); Alkaline Phosphatase 108 U/L (45-117); BUN Blood Urea Nitrogen 6 mg/dL (7-18); Bicarbonate 28 mmol/L (21-32); Bilirubin Direct 0.2 mg/dL (0-0.2); Bilirubin Total 0.3 mg/dL (0.2-1.0); Glucose Level 136 mg/dL (74-106); Magnesium 2.2 mg/dL (1.8-2.4); NT PRO-BNP 41 pg/mL (<125); Potassium 3.7 mmol/L (3.5-5.1); Protein, Total 8.4 g/dL (6.4-8.2); Sodium Level 137 mmol/L (136-145); Troponin (Emerg Dept Use Only) < 0.02 ng/mL (0.0-0.045)
[2020-10-30 21:10] LABS: SARS-COV-2 RT PCR POSITIVE (NEGATIVE)
--- NOTE | 2020-10-30 22:18 | EDPHYS ---
Physician Documentation [facility] Name: Maite Dumont Age: 50 yrs Sex: Female : 1970 Arrival Date: 10/30/2020 Time: 16:57 Bed 24 Private MD: ED Physician Aston Kam HPI: 10/30 19:16 This 50 yrs old Female presents to ER via Wheelchair with complaints of Cough, pm1 Chest Pain. 19:16 The patient or guardian reports cough. Onset: The symptoms/episode began/occurred 4 pm1 day(s) ago. Severity of symptoms: in the emergency department the symptoms are actually worse. Modifying factors: The symptoms are alleviated by nothing, the symptoms are aggravated by nothing. Associated signs and symptoms: Pertinent positives: chest pain, with cough, with breathing, fever, Pertinent negatives: diarrhea, nausea, vomiting. The patient has not experienced similar symptoms in the past. right ankle surgery 1 month ago. Patient reports positive COVID exposure in the household. Historical: - Allergies: 17:01 No Known Allergies; sv - PMHx: 17:03 Hypertension; sv - PSHx: 17:03 ankle; sv - Immunization history:: Adult Immunizations up to date. - Social history:: Smoking status: . ROS: 19:16 Eyes: Negative for injury, pain, redness, and discharge, ENT: Negative for injury, pm1 pain, and discharge, Neck: Negative for injury, pain, and swelling. 19:16 Abdomen/GI: Negative for abdominal pain, nausea, vomiting, diarrhea, and constipation, Back: Negative for injury and pain, MS/Extremity: Negative for injury and deformity, Skin: Negative for injury, rash, and discoloration, Neuro: Negative for headache, weakness, numbness, tingling, and seizure. 19:16 Constitutional: Positive for body aches, fever. 19:16 Cardiovascular: Positive for chest pain, Negative for edema, palpitations. 19:16 Respiratory: Positive for cough, shortness of breath, wheezing. Exam: 19:16 Constitutional: This is a well developed, well nourished patient who is awake, alert, pm1 and in no acute distress. Head/Face: Normocephalic, atraumatic. 19:16 Skin: Warm, dry with normal turgor. Normal color with no rashes, no lesions, and no evidence of cellulitis. MS/ Extremity: Pulses equal, no cyanosis. Neurovascular intact. Full, normal range of motion. 19:16 Chest/axilla: Inspection: normal, Palpation: is normal, no tenderness. 19:16 Cardiovascular: Rate: normal, Rhythm: regular, Pulses: no pulse deficits are appreciated. 19:16 Respiratory: Respirations: tachypnea, Breath sounds: wheezing: expiratory is heard in the right posterior upper lobe. 19:16 Abdomen/GI: Inspection: obese Palpation: abdomen is soft and non-tender, in all quadrants. 19:16 Neuro: Exam negative for acute changes, Orientation: is normal, Mentation: is normal, Motor: is normal, moves all fours, strength is normal, strength is 5/5 in all extremities. Vital Signs: 17:03 BP 142 / 95; Pulse 80; Resp 20; Temp 100.3(O); Pulse Ox 91% on R/A; Weight 113.4 kg; sv 18:45 BP 148 / 106; Pulse 86; Resp 30; Pulse Ox 95% on 4 lpm NC; vg1 19:00 BP 151 / 100; Pulse 89; Resp 28; Pulse Ox 93% on 3 lpm NC; vg1 19:30 BP 156 / 126; Pulse 84; Resp 26; Pulse Ox 97% on 3 lpm NC; vg1 20:00 BP 140 / 101; Pulse 120; Resp 26; Pulse Ox 92% on 3 lpm NC; vg1 20:30 BP 126 / 76; Pulse 115; Resp 30; Pulse Ox 95% on 3 lpm NC; vg1 21:51 Resp 28; Pulse Ox 87% on R/A; vg1 21:59 BP 126 / 71; Pulse 108; Resp 26; Pulse Ox 93% on 4 lpm NC; vg1 22:28 Temp 99.2(O); vg1 23:12 BP 134 / 80; Pulse 101; Resp 26; Pulse Ox 93% on 4 lpm NC; vg1 17:03 Pt placed on O2 \T\ 2L per NC. O2 sat up to 96%. sv MDM: 18:40 Patient medically screened. pm1 21:36 Data reviewed: vital signs. Data interpreted: Pulse oximetry: on 3L(s) per nasal pm1 gabrielle, is 95 %. Interpretation: acceptable. 22:15 Counseling: I had a detailed discussion with the patient and/or guardian regarding: the pm1 historical points, exam findings, and any diagnostic results supporting the discharge/admit diagnosis, lab results, radiology results, the need for further work-up and treatment in the hospital. 10/30 18:57 Order name: Basic Metabolic Panel pm1 10/30 18:57 Order name: CBC with Diff pm1 10/30 18:57 Order name: LFT's pm10/30 18:57 Order name: Magnesium pm1 10/30 18:57 Order name: NT PRO-BNP pm1 10/30 18:57 Order name: PT-INR pm1 10/30 18:57 Order name: Troponin (emerg Dept Use Only) pm1 10/30 18:57 Order name: Strep; Complete Time: 20:21 pm1 10/30 18:57 Order name: D-Dimer; Complete Time: 21:14 pm1 10/30 18:58 Order name: Basic Metabolic Panel; Complete Time: 20:21 EDMS 10/30 18:58 Order name: CBC with Automated Diff; Complete Time: 20:21 EDMS 10/30 18:58 Order name: Liver (Hepatic) Function; Complete Time: 20:21 EDMS 10/30 18:57 Order name: XRAY Chest (1 view) pm10/30 18:58 Order name: Magnesium; Complete Time: 20:21 EDMS 10/30 18:58 Order name: NT PRO-BNP; Complete Time: 20:21 EDMS 10/30 18:58 Order name: Protime (+INR); Complete Time: 21:14 EDMS 10/30 18:58 Order name: Troponin (Emerg Dept Use Only); Complete Time: 20:21 EDMS 10/30 19:57 Order name: Throat Culture ED10/30 20:22 Order name: CT Chest For PE Angio pm10/30 21:10 Order name: COVID-19/FLU A+B; Complete Time: 21:14 EDMS 10/30 23:05 Order name: CBC with Automated Diff ED10/30 23:05 Order name: CBC with Automated Diff ED10/30 23:05 Order name: Comprehensive Metabolic Panel ED10/30 23:05 Order name: Comprehensive Metabolic Panel EDCT 10/30 18:57 Order name: IV Saline Lock; Complete Time: 20:09 pm1 10/30 18:57 Order name: EKG; Complete Time: 18:59 pm1 10/30 18:57 Order name: Cardiac monitoring; Complete Time: 19:39 pm1 10/30 18:57 Order name: EKG - Nurse/Tech; Complete Time: 19:39 pm1 10/30 18:57 Order name: Labs collected and sent; Complete Time: 19:30 pm1 10/30 18:57 Order name: O2 Per Protocol; Complete Time: 19:19 pm1 10/30 18:57 Order name: O2 Sat Monitoring; Complete Time: 19:19 pm1 10/30 18:57 Order name: Droplet/Contact Precautions; Complete Time: 19:19 pm1 10/30 23:05 Order name: CONS Pharmacy Consult EDCT 10/30 23:05 Order name: CONS Physician Consult [facility] 10/30 23:05 Order name: [facility] EDCT Administered Medications: 19:30 Drug: Albuterol - atroVENT (3:1) (2.5 mg - 0.5 mg) 3 ml Route: Nebulizer; vg1 20:30 Follow up: Response: No adverse reaction vg1 19:30 Drug: SOLU-Medrol 125 mg Route: IVP; Site: right antecubital; vg1 20:30 Follow up: Response: No adverse reaction vg1 22:28 Drug: Tylenol 1000 mg Route: PO; vg1 23:19 Follow up: Response: No adverse reaction vg1 Disposition: 10/31 06:24 Co-signature as Attending Physician, Aston Kam MD I agree with the assessment and [facility] plan of care. Disposition: 10/30/20 22:17 Hospitalization ordered by Aleksey Durant for Observation. Preliminary diagnosis are Pneumonia due to SARS-associated coronavirus, Hypoxia. - Bed requested for Telemetry/MedSurg (observation). - Status is Observation. vg1 - Condition is Stable. - Problem is new. - Symptoms have improved. Signatures: Dispatcher [employer] EDCT Marline Torres RN RN Margarita Sahni RN RN mw Anderson, Corey, MD MD cha Marinas, Patrick, SILO PAINTER SILO PAINTER pm1 Madonna Miller RN RN vg1 Corrections: (The following items were deleted from the chart) 10/30 19:00 17:52 Chest Pa And Lat (2 Views)+RAD.RAD.BRZ ordered. EDMS EDMS 19:57 18:59 CORONAVIRUS+MR.LAB.BRZ ordered. EDMS EDMS 19:58 18:59 Influenza Screen (A \T\ B)+BA.LAB.BRZ ordered. EDMS EDMS 22:24 22:17 Hospitalization Ordered by Aleksey Durant MD for Observation. Preliminary pm1 diagnosis is Coronavirus infection, unspecified; Hypoxia. Bed requested for Telemetry/MedSurg (observation). Status is Observation. Condition is Stable. Problem is new. Symptoms have improved. pm1 23:08 22:24 10/30/2020 22:17 Hospitalization Ordered by Aleksey Durant MD for Observation. mw Preliminary diagnosis is Pneumonia due to SARS-associated coronavirus; Hypoxia. Bed requested for Telemetry/MedSurg (observation). Status is Observation. Condition is Stable. Problem is new. Symptoms have improved. pm1 23:26 23:08 10/30/2020 22:17 Hospitalization Ordered by Aleksey Durant MD for Observation. vg1 Preliminary diagnosis is Pneumonia due to SARS-associated coronavirusHypoxia. Bed requested for Telemetry/MedSurg (observation). Status is Observation. Condition is Stable. Problem is new. Symptoms have improved. mw
--- NOTE | 2020-10-30 22:18 | ER ---
Nurse's Notes [facility] Name: Maite Dumont Age: 50 yrs Sex: Female : 1970 Arrival Date: 10/30/2020 Time: 16:57 Bed 24 Private MD: Diagnosis: Hypoxia;Pneumonia due to SARS-associated coronavirus Presentation: 10/30 17:01 Chief complaint: Patient states: cough, chest pain with coughing or deep breathing, sv headache x 4 days. Coronavirus screen: Client denies travel out of the [place] in the last 14 days. At this time, the client does not indicate any symptoms associated with coronavirus-19. POSITIVE exposure to COVID in the household. Ebola Screen: No symptoms or risks identified at this time. Risk Assessment: Do you want to hurt yourself or someone else? Patient reports no desire to harm self or others. Onset of symptoms was October 26, 2020. 17:01 Method Of Arrival: Wheelchair sv 17:01 Acuity: ERIN 2 sv 17:03 Initial Sepsis Screen: Does the patient meet any 2 criteria? No. Patient's initial sv sepsis screen is negative. Does the patient have a suspected source of infection? No. Patient's initial sepsis screen is negative. Triage Assessment: 17:01 General: Appears in no apparent distress. uncomfortable, obese, Behavior is calm, sv cooperative, appropriate for age. Pain: Complains of pain in chest. Neuro: Level of Consciousness is awake, alert, obeys commands, Oriented to person, place, time, situation, Speech is normal. Respiratory: Reports cough that is non-productive, pain with cough Respiratory effort is even, unlabored, Respiratory pattern is regular, symmetrical. Historical: - Allergies: 17:01 No Known Allergies; sv - PMHx: 17:03 Hypertension; sv - PSHx: 17:03 ankle; sv - Immunization history:: Adult Immunizations up to date. - Social history:: Smoking status: . Screenin:17 Abuse screen: Denies threats or abuse. Nutritional screening: No deficits noted. vg1 Tuberculosis screening: No symptoms or risk factors identified. Fall Risk No fall in past 12 months (0 pts). No secondary diagnosis (0 pts). IV access (20 points). Ambulatory Aid- Crutches/Cane/Walker (15 pts). Gait- Normal/Bed Rest/Wheelchair (0 pts) Mental Status- Oriented to own ability (0 pts). Total Cosme Fall Scale indicates Low Risk Score (25-44 pts). Fall prevention measures have been instituted. Side Rails Up X 2 Placed close to Nursing Station. Assessment: 17:52 Reassessment: Received VO from Dr Kam for CXR. sv 19:15 General: Appears in no apparent distress. comfortable, Behavior is calm, cooperative. vg1 Pain: Complains of pain in epigastric area Pain currently is 6 out of 10 on a pain scale. Neuro: Level of Consciousness is awake, alert, obeys commands, Oriented to person, place, time, situation. Cardiovascular: Patient's skin is warm and dry. Respiratory: Airway is patent Respiratory effort is even, labored, Respiratory pattern is regular, symmetrical, Breath sounds with wheezes in right posterior upper lobe. GI: Reports nausea. : No signs and/or symptoms were reported regarding the genitourinary system. EENT: No signs and/or symptoms were reported regarding the EENT system. Derm: Skin is intact, is healthy with good turgor. Musculoskeletal: Circulation, motion, and sensation intact. 20:54 Reassessment: Patient appears in no apparent distress at this time. No changes from vg1 previously documented assessment. Patient and/or family updated on plan of care and expected duration. Pain level reassessed. Patient is alert, oriented x 3, equal unlabored respirations, skin warm/dry/pink. 21:51 Reassessment: Patient appears in no apparent distress at this time. No changes from vg1 previously documented assessment. Patient and/or family updated on plan of care and expected duration. Pain level reassessed. Patient is alert, oriented x 3, equal unlabored respirations, skin warm/dry/pink. 21:56 Reassessment: Removed O2 to assess patient on room air. Within 30 seconds patients O2 vg1 decreased from 93% on 4L NC, respirations 24 to 87% RA, respirations 28. Provider notified. Vital Signs: 17:03 BP 142 / 95; Pulse 80; Resp 20; Temp 100.3(O); Pulse Ox 91% on R/A; Weight 113.4 kg; sv 18:45 BP 148 / 106; Pulse 86; Resp 30; Pulse Ox 95% on 4 lpm NC; vg1 19:00 BP 151 / 100; Pulse 89; Resp 28; Pulse Ox 93% on 3 lpm NC; vg1 19:30 BP 156 / 126; Pulse 84; Resp 26; Pulse Ox 97% on 3 lpm NC; vg1 20:00 BP 140 / 101; Pulse 120; Resp 26; Pulse Ox 92% on 3 lpm NC; vg1 20:30 BP 126 / 76; Pulse 115; Resp 30; Pulse Ox 95% on 3 lpm NC; vg1 21:51 Resp 28; Pulse Ox 87% on R/A; vg1 21:59 BP 126 / 71; Pulse 108; Resp 26; Pulse Ox 93% on 4 lpm NC; vg1 22:28 Temp 99.2(O); vg1 23:12 BP 134 / 80; Pulse 101; Resp 26; Pulse Ox 93% on 4 lpm NC; vg1 17:03 Pt placed on O2 \T\ 2L per NC. O2 sat up to 96%. sv ED Course: 16:57 Patient arrived in ED. ds1 17:00 Arm band placed on. sv 17:03 Triage completed. sv 18:39 Madonna Miller, RN is Primary Nurse. vg1 18:40 Samson Brady NP is PHCP. pm1 18:40 Aston Kam MD is Attending Physician. pm1 19:15 Initial lab(s) drawn, by al, sent to lab. COVID swab sent to lab. Flu and/or RSV swab jp3 sent to lab. Strep swab sent to lab. Inserted saline lock: 20 gauge in right antecubital area, using aseptic technique. Blood collected. 19:18 Patient has correct armband on for positive identification. Bed in low position. Call vg1 light in reach. Side rails up X2. 19:18 Oxygen administration via nasal cannula \T\ 4L/min. vg1 19:25 EKG done, by ED staff, reviewed by Samson Brady NP. jp3 21:[address] via stretcher. vg1 21:33 XRAY Chest (1 view) In Process Unspecified. EDMS 21:55 CT Chest For PE Angio In Process Unspecified. EDMS 22:17 Aleksey Durant MD is Hospitalizing Provider. pm1 23:17 environmental monitoring specialist on. Pulse ox on. NIBP on. vg1 23:17 No provider procedures requiring assistance completed. Patient admitted, IV remains in vg1 place. Administered Medications: 19:30 Drug: Albuterol - atroVENT (3:1) (2.5 mg - 0.5 mg) 3 ml Route: Nebulizer; vg1 20:30 Follow up: Response: No adverse reaction vg1 19:30 Drug: SOLU-Medrol 125 mg Route: IVP; Site: right antecubital; vg1 20:30 Follow up: Response: No adverse reaction vg1 22:28 Drug: Tylenol 1000 mg Route: PO; vg1 23:19 Follow up: Response: No adverse reaction vg1 Outcome: 22:17 Decision to Hospitalize by Provider. pm1 23:17 Admitted to Med/surg accompanied by tech, via wheelchair, room 402, with oxygen, with vg1 chart, Report called to MEERA Tinoco 23:18 Condition: good vg1 23:18 Instructed on the need for admit. 23:26 Patient left the ED. vg1 Signatures: Dispatcher [employer] Marline Ryder, MEERA RN Cassi Sierra ds1 Samson Brady, SOREN MANAGER RETIREMENT pm1 Isidro Mariscal jp3 Madonna Miller RN RN vg1 Corrections: (The following items were deleted from the chart) 17:07 17:01 Coronavirus screen: Client denies travel out of the [place] in the last 14 days. At this time, the client does not indicate any symptoms associated with coronavirus-19. sv 17:08 17:03 BP 142 / 95; Pulse 80bpm; Resp 20bpm; Pulse Ox 91% RA; Temp 100.3F Oral; 113.4 sv kg; sv 17:09 17:01 Acuity: ERIN 3 sv sv 22:29 22:28 Temp 99.2F; vg1 vg1
[2020-10-30] MEDS ORDERED: ACETAMINOPHEN 500 MG TAB ONE (22:42)
--- NOTE | 2020-10-30 22:59 | P.HP ---
Certification for Inpatient Patient admitted to: Observation With expected LOS: <2 Midnights Patient will require the following post-hospital care: None Practitioner: I am a practitioner with admitting privileges, knowledge of patient current condition, hospital course, and medical plan of care. Services: Services provided to patient in accordance with Admission requirements found in Title 42 Section 412.3 of the Code of Federal Regulations Patient History Date of Service: 10/30/20 Reason for admission: Shortness of breath History of Present Illness: 50-year-old female past medical history of HTN, obesity, recent right ankle fracture post fall s/p ORIF 1 month ago presented today because of worsening shortness of breath, cough and wheezing. She denies any fever. On presentation in the ED she was noted with O2 sats of 89% on room air with increased work of breathing. Her saturation has improved now to above 92% with 2 L nasal cannula. She has upper airway wheeze which improved with duo nebs. Chest x-ray and CT imaging shows no evidence of pulmonary emboli seen breath interstitial changes consistent with possible infectious pneumonitis. Her covid 19 screen is positive. She has been admitted for covid bilateral pneumonia with hypoxic respiratory failure Allergies No Known Allergies Allergy (Verified 10/01/20 13:37) Home Medications: Losartan Potassium [Cozaar*] 50 mg PO BID #60 10/03/20 Losartan Potassium [Cozaar*] 50 mg PO BID #60 tablet 10/03/20 - Past Medical/Surgical History Diabetic: No -: HTN -: Obesity -: X2 -: Cholecystectomy - Social History Smoking Status: Never smoker Alcohol use: No CD- Drugs: No Place of Residence: Home Review of Systems 10-point ROS is otherwise unremarkable Physical Examination - Physical Exam General: Alert, In no apparent distress, Oriented x3, Cooperative HEENT: Atraumatic, Normocephalic, PERRLA Neck: Supple, 2+ carotid pulse no bruit, JVD not distended Respiratory: Clear to auscultation bilaterally, Normal air movement Cardiovascular: No edema, Normal pulses, Regular rate/rhythm Gastrointestinal: Normal bowel sounds, Soft and benign, Non-distended Musculoskeletal: Erythema, Tenderness, Other (dressing over right ankle , mild tender ) Integumentary: No rashes, No breakdown Neurological: Normal speech, Normal strength at 5/5 x4 extr - Studies Laboratory Data (last 24 hrs) 10/30/20 19:10: PT 12.8 H, INR 1.11 10/30/20 19:10: WBC 6.60, Hgb 13.9, Hct 41.9, Plt Count 272 10/30/20 19:10: Sodium 137, Potassium 3.7, BUN 6 L, Creatinine 0.62, Glucose 136 H, Magnesium 2.2, Total Bilirubin 0.3, AST 62 H, ALT 56, Alkaline Phosphatase 108 Microbiology Data (last 24 hrs): 10/30/20 19:12 Throat Group A Streptococcus Rapid Screen - Final Assessment and Plan - Problems (Diagnosis) (1) Pneumonia due to COVID-19 virus Current Visit: Yes Status: Acute (2) History of hypertension Current Visit: No Status: Acute - Plan # Covid 19 Pneumonia with acute bronchitis and Hypoxia -will admit to observation -Will provide supplemental O2 as needed to keep O2 sat above 90. -wean O2 as tolerated. -With dose ivermectin 18mg x1 now. -start Decadron 4 mg b.i.d./zinc oxide/vitamin-C -we start a held both a sore night -do duo nebs q.6 hr for intermittent wheeze # hypertension-controlled, continue losartan # Ankle fracture with Recent Right ORIF- c/w pain regime , and ambulate with boot walker -do PT #DVT prophylaxis-subcutaneous heparin #Advanced directive-full code Discharge Plan: Home - Advance Directives Does patient have a Living Will: No Does patient have a Durable POA for Healthcare: No Physician Review: Patient Assessed, Agree with Above Assessment and Plan
[2020-10-30] MEDS ORDERED: ONDANSETRON 4 MG/2 ML VIAL IV PRN (23:01)
[2020-10-30] MEDS ORDERED: MORPHINE 2 MG/ML SYR IV PRN (23:01)
[2020-10-30] MEDS ORDERED: ALBUTEROL 2.5 MG/3 ML NEB SOL NEB PRN (23:01)
[2020-10-30] MEDS ORDERED: HYDRALAZINE HCL 20 MG/ML VIAL IV PRN (23:03)
[2020-10-30] MEDS ORDERED: GUAIFENESIN/DM 5 ML UCUP PO PRN (23:03)
[2020-10-30] MEDS ORDERED: LORAZEPAM 0.5 MG TABLET PO PRN (23:03)
[2020-10-30] MEDS ORDERED: Oxycodone HCl/Acetaminophen 1 TAB TAB PO PRN (23:40)
[2020-10-31] MEDS ORDERED: IVERMECTIN 3 MG TABLET PO SCH
[2020-10-31 01:04] VITALS: BMI 43.1
[2020-10-31] MEDS: dexAMETHasone 4 MG TAB PO SCH ×2 (01:14→08:02)
[2020-10-31] MEDS: IPRATROPIUM BROM 0.5MG/2.5ML NEB SCH ×4 (01:30→20:00)
[2020-10-31 03:04] LABS: Absolute Lymphocytes (CBC) 0.6 K/uL (0.7-4.9); Basophils % 0.2 % (0-1.3); Hematocrit 39.8 % (36.0-45.0); Lymphocytes % 12.5 % (15.3-44.8); MPV 8.6 fL (7.6-11.3); RBC Red Blood Cell Count 4.62 M/uL (3.86-4.86)
[2020-10-31 03:06] LABS: Protime INR 1.07
[2020-10-31 03:17] LABS: ALT/SGPT 51 U/L (12-78); AST/SGOT 53 U/L (15-37); Alkaline Phosphatase 99 U/L (45-117); Amylase 28 U/L (25-115); BUN Blood Urea Nitrogen 6 mg/dL (7-18); Bicarbonate 27 mmol/L (21-32); Bilirubin Direct 0.1 mg/dL (0-0.2); Bilirubin Total 0.3 mg/dL (0.2-1.0); Glucose Level 251 mg/dL (74-106); Lipase 84 U/L (73-393); Potassium 3.7 mmol/L (3.5-5.1); Sodium Level 137 mmol/L (136-145)
[2020-10-31 05:20] LABS: Blood Morphology Comment NOT SEEN (NOT SEEN); Platelet Estimate ADEQ
[2020-10-31] MEDS: ZINC SULFATE 220 MG CAP PO SCH (08:02)
[2020-10-31] MEDS: ENOXAPARIN 40 MG/0.4 ML SQ SCH (08:02)
[2020-10-31] MEDS: LOSARTAN POTASSIUM 50 MG TABLET PO SCH ×2 (08:02→20:23)
[2020-10-31] MEDS: FAMOTIDINE 20 MG TAB PO SCH ×2 (08:02→20:23)
[2020-10-31] MEDS: GUAIFENESIN 600 MG SA TAB PO SCH ×2 (08:02→20:24)
--- NOTE | 2020-10-31 08:12 | RAD REPORT ---
EXAM DESCRIPTION: RAD - Chest Single View - 10/30/2020 9:33 pm CLINICAL HISTORY: Cough;Chest pain, history of COVID exposure COMPARISON: Portable chest October 01 TECHNIQUE: AP portable chest image was obtained 10/30/2020 9:33 pm . FINDINGS: Lung volumes are low. Bilateral airspace opacification is present. Given the provided hist ory, bilateral COVID-19 pneumonia would be the presumptive diagnosis. Trachea is midline. Heart and vasculature are normal. No measurable pleural effusion and no pneumotho rax. No acute bony abnormality seen. No acute aortic findings suspected. IMPRESSION: Low lung volume examination showing bilateral airspace opacification. Mild to moderate severity bilateral COVID-19 pneumonia is the most likely etiology given the chest fi ndings and provided history.
[2020-10-31] MEDS: ASPIRIN EC 81 MG TAB PO SCH (08:40)
[2020-10-31] MEDS: IVERMECTIN 3 MG TABLET PO SCH (08:41)
--- NOTE | 2020-10-31 12:06 | RAD REPORT ---
EXAM DESCRIPTION: CT - Chest For Pe Angio - 10/31/2020 5:41 am CLINICAL HISTORY: SOB;Chest pain. COMPARISON: None. TECHNIQUE: CTA of the chest was performed following intravenous administration of iodinated contrast . Axial soft tissue and bone window, and coronal and sagittal soft tissue window reconstructions were created and sent to PACS. 3D postprocessing was performed on an independent workstation, with images sent to PACS for subsequen t review. This exam was performed according to our departmental dose-optimization program, which includes autom ated exposure control, adjustment of the mA and/or kV according to patient size and/or use of iterati ve reconstruction technique. FINDINGS: Vascular: The pulmonary arteries are suboptimally opacified, only able to be evaluated to the lobar level. No CT evidence of central acute pulmonary thromboembolism. Mild prominence of the ma in pulmonary trunk, measuring up to 3.1 cm in diameter. No evidence of aortic aneurysm or dissection. Lungs and pleura: Moderate multifocal interstitial thickening and consolidations throughout all lobes , with some peripheral predominance. No pleural effusion. No pneumothorax. Mediastinum and neck: No mediastinal lymphadenopathy by CT size criteria. Unremarkable appearance of the thyroid gland. Cardiac: No cardiomegaly or pericardial effusion. No thoracic aortic aneurysm or dissection. Abdomen: Hepatic steatosis. Musculoskeletal: No concerning osseous abnormality. IMPRESSION: 1. Suboptimal contrast opacification. No evidence of central pulmonary embolism. 2. Mild prominence of the main pulmonary trunk, possibly sequela of pulmonary arterial hypertension . 3. Moderate interstitial thickening and consolidation throughout the lungs. Correlate for infectiou s or inflammatory process. Electronically signed by: Awilda Pham MD 10/30/2020 10:06 PM VACUUM METALIZING SUPERVISOR Due to temporary technical issues with the PACS/Fluency reporting system, reports are being signed by the in house radiologist without review as a courtesy to ensure prompt reporting. The interpreting r adiologist is fully responsible for the content of the report.
[2020-10-31] MEDS: ACETAMINOPHEN 500 MG TAB PO PRN (15:44)
--- NOTE | 2020-10-31 15:52 | P.PN ---
Subjective Date of Service: 10/31/20 Primary Care Provider: None Chief Complaint: Shortness of breath Subjective: Improving, Doing well Physical Examination - Vital Signs Temperature: 98.5 F Blood Pressure: 118/64 Pulse: 68 Respirations: 28 Pulse Ox (%): 90 - Studies Laboratory Data (last 24 hrs) 10/31/20 05:00: Sodium Cancelled, Potassium Cancelled, BUN Cancelled, Creatinine Cancelled, Glucose Cancelled, Total Bilirubin Cancelled, AST Cancelled, ALT Cancelled, Alkaline Phosphatase Cancelled 10/31/20 02:43: PT 12.3, INR 1.07, APTT 30.4 10/31/20 02:43: Sodium 137, Potassium 3.7, BUN 6 L, Creatinine 0.69, Glucose 251 H, Total Bilirubin 0.3, AST 53 H, ALT 51, Alkaline Phosphatase 99, Amylase 28, Lipase 84 10/31/20 02:43: WBC 5.00 D, Hgb 12.8, Hct 39.8, Plt Count 276 10/31/20 01:51: APTT Cancelled 10/30/20 19:10: PT 12.8 H, INR 1.11 10/30/20 19:10: WBC 6.60, Hgb 13.9, Hct 41.9, Plt Count 272 10/30/20 19:10: Sodium 137, Potassium 3.7, BUN 6 L, Creatinine 0.62, Glucose 136 H, Magnesium 2.2, Total Bilirubin 0.3, AST 62 H, ALT 56, Alkaline Phosphatase 108 Microbiology Data (last 24 hrs): 10/30/20 19:12 Throat Group A Streptococcus Rapid Screen - Final Assessment & Plan Discharge Plan: Home Plan to discharge in: 48 Hours Physician Review Additional Text: Physical exam: Patient alert, cooperative Heart: Regular rate Lungs: Patient on 4 L per nasal cannula Abdomen: Soft Extremities: Good range of motion Impression: Dyspnea secondary to acute respiratory failure related to bilateral COVID 19 pn eumonia Hypertension Plan: Dyspnea secondary to acute respiratory failure related to bilateral COVID 19 pneumonia: Continue with steroid. Patient on 4 L per nasal cannula. Will need to wean off oxygen. Continue with supplementation and ivermectin. Will need to discuss plan of care with patient as patient has no insurance and undocumented. Patient may be able to get home oxygen at discharge but will need to pay a certain amount per month. Will discuss with patient. Continue incentive spirometer. Continue with proning. Anticipate improvement over the next 24 hr. Hypertension: Continue losartan Time Spent Managing Pts Care (In Minutes): 55
--- NOTE | 2020-10-31 17:10 | EKG ---
Test Date: 2020-10-30 Test Time: 19:35:59 Real Estate Investment Analyst: IDRIS MEASUREMENT RESULTS: Intervals: Rate: 85 KS: 142 QRSD: 86 QT: 370 QTc: 440 [place]rumpler: P: 6 KS: 142 QRS: 57 T: 4 INTERPRETIVE STATEMENTS: Normal sinus rhythm Nonspecific T wave abnormality Abnormal ECG No previous ECG available for comparison Electronically Signed On 10-31-20 17:06:19 SEAMLESS TUBE ROLLER by Kalpesh Whyte
[2020-10-31] MEDS: MELATONIN 5 MG TABLET PO SCH (20:23)
[2020-10-31] MEDS: ASCORBIC ACID 500 MG TABLET PO SCH (20:23)
[2020-10-31] MEDS: THIAMINE HCL 100 MG TABLET PO SCH (20:25)
[2020-10-31] MEDS ORDERED: predniSONE 20 MG TAB PO SCH (21:00)
[2020-11-01 00:42] LABS: Urine Appearance CLEAR; Urine Bilirubin NEGATIVE (NEG); Urine Blood NEGATIVE (NEG); Urine Color YELLOW; Urine Glucose NEGATIVE (NEG); Urine Protein NEGATIVE (NEG); Urine Urobilinogen 0.2 mg/dL (0.2-1.0)
[2020-11-01 00:43] LABS: Urine Microscopic Reflex NO UMIC
[2020-11-01] MEDS: IPRATROPIUM BROM 0.5MG/2.5ML NEB SCH ×4 (02:50→19:23)
[2020-11-01 04:21] LABS: C-Reactive Protein 54.9 mg/L (<3.00); Ferritin 395.3 ng/mL (8-388)
[2020-11-01] MEDS: ASCORBIC ACID 500 MG TABLET PO SCH ×3 (08:47→20:11)
[2020-11-01] MEDS: ZINC SULFATE 220 MG CAP PO SCH (08:47)
[2020-11-01] MEDS: FAMOTIDINE 20 MG TAB PO SCH ×2 (08:47→20:11)
[2020-11-01] MEDS: VITAMIN D 1000 UNIT TAB PO SCH (08:47)
[2020-11-01] MEDS: GUAIFENESIN 600 MG SA TAB PO SCH ×2 (08:47→20:12)
[2020-11-01] MEDS: THIAMINE HCL 100 MG TABLET PO SCH ×3 (08:48→20:11)
[2020-11-01] MEDS: ENOXAPARIN 40 MG/0.4 ML SQ SCH (08:48)
[2020-11-01] MEDS: ACETAMINOPHEN 500 MG TAB PO PRN (08:48)
[2020-11-01] MEDS: METHYLPREDNISOLONE 125 MG INJ IV SCH ×3 (08:48→20:12)
[2020-11-01] MEDS: LOSARTAN POTASSIUM 50 MG TABLET PO SCH ×2 (08:48→20:11)
[2020-11-01] MEDS: ASPIRIN EC 81 MG TAB PO SCH (09:00)
[2020-11-01] MEDS ORDERED: D50W 25 GM/50 ML SYRINGE IV PRN (15:46)
[2020-11-01] MEDS ORDERED: GLUCAGON 1 MG/VIAL IM PRN (15:46)
--- NOTE | 2020-11-01 15:53 | P.PN ---
Subjective Date of Service: 11/01/20 Primary Care Provider: None Chief Complaint: Shortness of breath Subjective: Other (Patient on a non-rebreather.) Physical Examination - Vital Signs Temperature: 97.3 F Blood Pressure: 100/52 Pulse: 58 Respirations: 16 Pulse Ox (%): 92 - Studies Microbiology Data (last 24 hrs): 10/30/20 19:12 Throat Culture & Sensitivity - Final NORMAL UPPER RESPIRATORY ZAFAR GROWN. Assessment & Plan Discharge Plan: Home Plan to discharge in: 72 Hours Physician Review Additional Text: Physical exam: Patient alert, cooperative Heart: Regular rate Lungs: Patient on non-rebreather this morning. Requirement of more oxygen noted. Abdomen: Soft Extremities: Good range of motion Impression: Dyspnea secondary to acute respiratory failure related to bilateral COVID 19 pneumonia Hypertension Hyperglycemia suspect diabetes Plan: Dyspnea secondary to acute respiratory failure related to bilateral COVID 19 pneumonia: Patient required more oxygen this morning. Will change oral steroid to IV. Continue vitamin supplementation. Patient has received either bank him. Continue monitor the patient closely. Will discuss with pulmonology. Encourage incentive spirometer and proning. Dissipate improvement over the next 48 hr Hypertension: Continue losartan Hyperglycemia suspect diabetes: Blood sugar elevated. Will check A1c. Will provide sliding scale. Will monitor closely. Time Spent Managing Pts Care (In Minutes): 55
[2020-11-01] MEDS: INSULIN -REGULAR HUMAN 50 UNIT/0.5 ML ML SQ SCH ×2 (16:50→20:12)
[2020-11-01] MEDS: MELATONIN 5 MG TABLET PO SCH (20:11)
[2020-11-02] MEDS: IPRATROPIUM BROM 0.5MG/2.5ML NEB SCH ×4 (02:45→20:15)
[2020-11-02 04:12] LABS: Albumin 2.8 g/dL (3.4-5.0); Bilirubin Total 0.4 mg/dL (0.2-1.0); C-Reactive Protein 28.6 mg/L (<3.00); Ferritin 327.7 ng/mL (8-388); Protein, Total 7.2 g/dL (6.4-8.2)
[2020-11-02] MEDS: VITAMIN D 1000 UNIT TAB PO SCH (08:43)
[2020-11-02] MEDS: THIAMINE HCL 100 MG TABLET PO SCH ×3 (08:44→20:10)
[2020-11-02] MEDS: GUAIFENESIN 600 MG SA TAB PO SCH ×2 (08:44→20:10)
[2020-11-02] MEDS: ZINC SULFATE 220 MG CAP PO SCH (08:44)
[2020-11-02] MEDS: FAMOTIDINE 20 MG TAB PO SCH ×2 (08:45→20:10)
[2020-11-02] MEDS: LOSARTAN POTASSIUM 50 MG TABLET PO SCH ×3 (08:45→23:42)
[2020-11-02] MEDS: IVERMECTIN 3 MG TABLET PO SCH (08:45)
[2020-11-02] MEDS: ASCORBIC ACID 500 MG TABLET PO SCH ×3 (08:45→20:10)
[2020-11-02] MEDS: METHYLPREDNISOLONE 125 MG INJ IV SCH ×3 (08:46→20:10)
[2020-11-02] MEDS: ENOXAPARIN 40 MG/0.4 ML SQ SCH (08:46)
[2020-11-02] MEDS: INSULIN -REGULAR HUMAN 50 UNIT/0.5 ML ML SQ SCH ×4 (08:46→20:11)
[2020-11-02] MEDS: ASPIRIN EC 81 MG TAB PO SCH (08:50)
--- NOTE | 2020-11-02 09:32 | P.PN ---
Subjective Date of Service: 11/02/20 Primary Care Provider: None Chief Complaint: Shortness of breath Subjective: Other (Patient appears improved. Currently on non-rebreather.) Physical Examination - Vital Signs Temperature: 97.7 F Blood Pressure: 130/72 Pulse: 54 Respirations: 16 Pulse Ox (%): 90 - Studies Microbiology Data (last 24 hrs): 10/30/20 19:12 Throat Culture & Sensitivity - Final NORMAL UPPER RESPIRATORY ZAFAR GROWN. Assessment & Plan Discharge Plan: Home Plan to discharge in: 72 Hours Physician Review Additional Text: Physical exam: Patient alert, cooperative. Patient appears improved since yesterday. Currently on non-rebreather. Heart: Regular rate Lungs: No significant distress noted. Currently on non-rebreather. Abdomen: Soft, nontender Extremities: Good range of motion Impression: Dyspnea secondary to acute respiratory failure related to bilateral COVID 19 pneumonia Hypertension Diabetes mellitus type 2 with hyperglycemia, new Plan: Dyspnea secondary to acute respiratory failure related to bilateral COVID 19 pneumonia: Patient appears improved. Will have respiratory trial with high- flow oxygen. Case discussed with pulmonology. Continue IV steroids. Continue supplementation. Patient on DVT prophylaxis. Encourage incentive spirometer and proning. Anticipate improvement over the next 48-72 hr. Hypertension: Continue losartan Diabetes mellitus type 2 with hyperglycemia, new: Hemoglobin A1c 7.2. New diagnosis of diabetes. Will continue Accu-Cheks and sliding scale. Will start metformin. Will monitor and adjust appropriately. Time Spent Managing Pts Care (In Minutes): 55
[2020-11-02] MEDS: METFORMIN HCL 500 MG TAB PO SCH (16:58)
[2020-11-02] MEDS: MELATONIN 5 MG TABLET PO SCH (20:10)
[2020-11-03] MEDS: IPRATROPIUM BROM 0.5MG/2.5ML NEB SCH ×4 (02:35→19:45)
[2020-11-03 04:09] LABS: C-Reactive Protein 13.7 mg/L (<3.00)
[2020-11-03] MEDS: VITAMIN D 1000 UNIT TAB PO SCH (07:27)
[2020-11-03] MEDS: LOSARTAN POTASSIUM 50 MG TABLET PO SCH ×2 (07:27→20:01)
--- NOTE | 2020-11-03 07:27 | RAD REPORT ---
EXAM DESCRIPTION: RAD - Chest Single View - 11/03/2020 4:47 am CLINICAL HISTORY: follow up COVID COMPARISON: October 30 TECHNIQUE: AP portable chest image was obtained 11/03/2020 4:47 am . FINDINGS: Lung volumes are low. Cardiomegaly and vascular engorgement are still present. Widened med iastinum remains. Bilateral airspace opacification is present in both lung garcia showing no measurab le improvement. Costophrenic angle blunting this present from pleural effusion or possibly the affect s of body habitus and shallow inspiration. No pneumothorax. IMPRESSION: Shallow inspiration film showing bilateral airspace opacification not substantially diff erent from comparison October 30.
[2020-11-03] MEDS: METFORMIN HCL 500 MG TAB PO SCH ×2 (07:28→16:15)
[2020-11-03] MEDS: ASPIRIN EC 81 MG TAB PO SCH (07:28)
[2020-11-03] MEDS: ZINC SULFATE 220 MG CAP PO SCH (07:28)
[2020-11-03] MEDS: FAMOTIDINE 20 MG TAB PO SCH ×2 (07:29→20:00)
[2020-11-03] MEDS: ASCORBIC ACID 500 MG TABLET PO SCH ×3 (07:29→20:01)
[2020-11-03] MEDS: ENOXAPARIN 40 MG/0.4 ML SQ SCH (07:29)
[2020-11-03] MEDS: THIAMINE HCL 100 MG TABLET PO SCH ×3 (07:29→20:01)
[2020-11-03] MEDS: GUAIFENESIN 600 MG SA TAB PO SCH ×2 (07:30→20:01)
[2020-11-03] MEDS: INSULIN -REGULAR HUMAN 50 UNIT/0.5 ML ML SQ SCH ×4 (07:30→20:01)
[2020-11-03] MEDS: METHYLPREDNISOLONE 125 MG INJ IV SCH ×3 (07:30→20:00)
--- NOTE | 2020-11-03 09:23 | P.PN ---
Subjective Date of Service: 11/03/20 Primary Care Provider: None Chief Complaint: Shortness of breath Subjective: Improving Physical Examination - Vital Signs Temperature: 97.0 F Blood Pressure: 153/86 Pulse: 52 Respirations: 20 Pulse Ox (%): 94 Assessment & Plan Discharge Plan: Home Plan to discharge in: 48 Hours Physician Review Additional Text: Physical exam: Patient alert, cooperative. Patient continues to improve. Patient on nasal cannula above 10 L. Heart: Regular rate Lungs: No significant distress noted. Patient on nasal cannula above 10 L Abdomen: Soft, nontender Extremities: Good range of motion Impression: Dyspnea secondary to acute respiratory failure related to bilateral COVID 19 pneumonia Hypertension Diabetes mellitus type 2 with hyperglycemia, new Plan: Dyspnea secondary to acute respiratory failure related to bilateral COVID 19 pneumonia: Patient continues to slowly improved. Respiratory has tried high- flow. Patient currently on nasal cannula at 10-15 L. Continue to wean off. Continue IV steroids and supplementation. Patient on DVT prophylaxis. Encourage incentive spirometer and proning. Will change DVT prophylaxis to Eliquis. Lovenox and aspirin discontinued. Anticipate improvement over the next 48-72 hr. Hypertension: Continue losartan Diabetes mellitus type 2 with hyperglycemia, new: Hemoglobin A1c 7.2. New diagnosis of diabetes. Will continue Accu-Cheks and sliding scale. Metformin started. Continue to monitor and adjust. Time Spent Managing Pts Care (In Minutes): 55
[2020-11-03] MEDS: APIXABAN 5 MG TABLET PO SCH (20:00)
[2020-11-03] MEDS: ACETAMINOPHEN 500 MG TAB PO PRN (20:00)
[2020-11-03] MEDS: MELATONIN 5 MG TABLET PO SCH (20:01)
[2020-11-04] MEDS: IPRATROPIUM BROM 0.5MG/2.5ML NEB SCH ×4 (01:45→19:30)
[2020-11-04] MEDS: INSULIN -REGULAR HUMAN 50 UNIT/0.5 ML ML SQ SCH ×4 (08:30→21:36)
[2020-11-04] MEDS: VITAMIN D 1000 UNIT TAB PO SCH (08:42)
[2020-11-04] MEDS: LOSARTAN POTASSIUM 50 MG TABLET PO SCH ×2 (08:43→21:38)
[2020-11-04] MEDS: ZINC SULFATE 220 MG CAP PO SCH (08:43)
[2020-11-04] MEDS: ASCORBIC ACID 500 MG TABLET PO SCH ×3 (08:43→21:37)
[2020-11-04] MEDS: APIXABAN 5 MG TABLET PO SCH ×2 (08:43→21:38)
[2020-11-04] MEDS: FAMOTIDINE 20 MG TAB PO SCH ×2 (08:43→21:37)
[2020-11-04] MEDS: THIAMINE HCL 100 MG TABLET PO SCH ×3 (08:43→21:36)
[2020-11-04] MEDS: METFORMIN HCL 500 MG TAB PO SCH ×2 (08:43→16:41)
[2020-11-04] MEDS: GUAIFENESIN 600 MG SA TAB PO SCH ×2 (08:43→21:35)
[2020-11-04] MEDS: METHYLPREDNISOLONE 125 MG INJ IV SCH ×3 (08:44→21:36)
--- NOTE | 2020-11-04 12:56 | P.PN ---
Subjective Date of Service: 11/04/20 Primary Care Provider: None Chief Complaint: Shortness of breath Subjective: Improving Physical Examination - Vital Signs Temperature: 96.6 F Blood Pressure: 127/69 Pulse: 54 Respirations: 22 Pulse Ox (%): 93 Assessment & Plan Discharge Plan: Home Plan to discharge in: 48 Hours Physician Review Additional Text: Physical exam: Patient alert, cooperative. Patient continues to improve. Patient is now on 7 L. Heart: Regular rate Lungs: No significant distress noted. Patient on nasal cannula above 7 L Abdomen: Soft, nontender Extremities: Good range of motion Impression: Dyspnea secondary to acute respiratory failure related to bilateral COVID 19 pneumonia Hypertension Diabetes mellitus type 2 with hyperglycemia, new Plan: Dyspnea secondary to acute respiratory failure related to bilateral COVID 19 pneumonia: Patient continues to slowly improved. Continue to wean off. Current on 7 L. Continue IV steroids and supplementation. Patient on DVT prophylaxis. Encourage incentive spirometer and proning. Patient on Eliquis. Anticipate improvement over the next 48-72 hr. Hypertension: Continue losartan Diabetes mellitus type 2 with hyperglycemia, new: Hemoglobin A1c 7.2. New diagnosis of diabetes. Will continue Accu-Cheks and sliding scale. Metformin started. Continue to monitor and adjust. Time Spent Managing Pts Care (In Minutes): 55
[2020-11-04] MEDS: ACETAMINOPHEN 500 MG TAB PO PRN (17:49)
[2020-11-04] MEDS: MELATONIN 5 MG TABLET PO SCH (21:37)
[2020-11-05] MEDS: IPRATROPIUM BROM 0.5MG/2.5ML NEB SCH ×4 (01:00→20:47)
[2020-11-05 04:13] LABS: Absolute Lymphocytes (CBC) 1.2 K/uL (0.7-4.9); Basophils % 0.6 % (0-1.3); Hematocrit 38.7 % (36.0-45.0); Lymphocytes % 10.3 % (15.3-44.8); MPV 8.1 fL (7.6-11.3); RBC Red Blood Cell Count 4.45 M/uL (3.86-4.86)
[2020-11-05 04:34] LABS: C-Reactive Protein 4.6 mg/L (<3.00); Magnesium 2.5 mg/dL (1.8-2.4); Potassium 4.5 mmol/L (3.5-5.1)
[2020-11-05 05:28] LABS: Blood Morphology Comment NOT SEEN (NOT SEEN); Platelet Estimate INCR
[2020-11-05] MEDS: APIXABAN 5 MG TABLET PO SCH ×2 (08:40→20:40)
[2020-11-05] MEDS: THIAMINE HCL 100 MG TABLET PO SCH ×3 (08:40→20:41)
[2020-11-05] MEDS: ZINC SULFATE 220 MG CAP PO SCH (08:40)
[2020-11-05] MEDS: METHYLPREDNISOLONE 125 MG INJ IV SCH (08:40)
[2020-11-05] MEDS: glipiZIDE 5 MG TAB PO SCH ×2 (08:41→16:39)
[2020-11-05] MEDS: ASCORBIC ACID 500 MG TABLET PO SCH ×3 (08:41→20:39)
[2020-11-05] MEDS: GUAIFENESIN 600 MG SA TAB PO SCH (08:41)
[2020-11-05] MEDS: METFORMIN HCL 500 MG TAB PO SCH ×2 (08:41→16:39)
[2020-11-05] MEDS: VITAMIN D 1000 UNIT TAB PO SCH (08:41)
[2020-11-05] MEDS: INSULIN -REGULAR HUMAN 50 UNIT/0.5 ML ML SQ SCH ×4 (08:43→20:42)
[2020-11-05] MEDS: LOSARTAN POTASSIUM 50 MG TABLET PO SCH ×2 (08:56→20:40)
[2020-11-05] MEDS ORDERED: D50W 25 GM/50 ML VIAL IV PRN (09:00)
--- NOTE | 2020-11-05 10:03 | P.PN ---
Subjective Date of Service: 11/05/20 Primary Care Provider: None Chief Complaint: Shortness of breath Subjective: Improving, Doing well Physical Examination - Vital Signs Temperature: 96.6 F Blood Pressure: 136/60 Pulse: 60 Respirations: 16 Pulse Ox (%): 95 - Studies Microbiology Data (last 24 hrs): 10/31/20 02:43 Blood - Blood Aerobic Blood Culture - Final No growth in 5 days. 10/31/20 02:43 Blood - Blood Anaerobic Blood Culture - Final No growth in 5 days. Assessment & Plan Discharge Plan: Home Plan to discharge in: 24 Hours Physician Review Additional Text: Physical exam: Patient alert, cooperative. Patient continues to improve. Patient is now on 5 L. Heart: Regular rate Lungs: No significant distress noted. Patient on nasal cannula above 5 L Abdomen: Soft, nontender Extremities: Good range of motion Impression: Dyspnea secondary to acute respiratory failure related to bilateral COVID 19 pneumonia Hypertension Diabetes mellitus type 2 with hyperglycemia, new Plan: Dyspnea secondary to acute respiratory failure related to bilateral COVID 19 pneumonia: Patient continues to improve. Will decrease IV steroids. Continue supplementation. Patient remains on Eliquis. Encourage incentive spirometer. Will adjust medications accordingly. Now on 5 L per nasal cannula. Continue to wean off below 4 L. Once below 4 L and ambulating well without significant desaturations then will consider discharge. This will likely occur within the next 24 hr. Hypertension: Continue losartan Diabetes mellitus type 2 with hyperglycemia, new: Hemoglobin A1c 7.2. New diagnosis of diabetes. Will continue Accu-Cheks and sliding scale. Patient on glipizide and metformin. Will increase metformin for better control. Time Spent Managing Pts Care (In Minutes): 55
[2020-11-05] MEDS: FAMOTIDINE 20 MG TAB PO SCH ×2 (11:18→20:40)
--- NOTE | 2020-11-05 11:42 | P.CNS ---
Date of Consult: 11/05/20 Patient is here for trice. She is undocumented. the patient is currently on oxygen. She has a history of htn and dm2. Last a1c was 7.2. The patient is currently in house on 4lts of oxygen She is resting comfortably in the room on oxygen Will need a pcp on discharge. Have given her my card. Will have the patient call. She is Swiss Speaking only . We can accomidate this.
[2020-11-05] MEDS: METHYLPREDNISOLONE 40 MG INJ IV SCH ×2 (13:49→20:41)
[2020-11-05] MEDS: MELATONIN 5 MG TABLET PO SCH (20:39)
[2020-11-05] MEDS: ACETAMINOPHEN 500 MG TAB PO PRN (20:41)
[2020-11-06] MEDS: IPRATROPIUM BROM 0.5MG/2.5ML NEB SCH ×4 (01:48→20:00)
[2020-11-06 05:07] LABS: Absolute Lymphocytes (CBC) 1.3 K/uL (0.7-4.9); Hematocrit 38.9 % (36.0-45.0); Lymphocytes % 10.5 % (15.3-44.8); MPV 8.3 fL (7.6-11.3); RBC Red Blood Cell Count 4.46 M/uL (3.86-4.86)
[2020-11-06 05:33] LABS: BUN Blood Urea Nitrogen 23 mg/dL (7-18); Bicarbonate 28 mmol/L (21-32); Ferritin 246.7 ng/mL (8-388); Glucose Level 238 mg/dL (74-106); Magnesium 2.4 mg/dL (1.8-2.4); Potassium 4.4 mmol/L (3.5-5.1); Sodium Level 136 mmol/L (136-145)
[2020-11-06 05:53] LABS: C-Reactive Protein < 2.90 mg/L (<3.00)
[2020-11-06] MEDS: INSULIN -REGULAR HUMAN 50 UNIT/0.5 ML ML SQ SCH ×4 (07:30→22:13)
[2020-11-06] MEDS: ASCORBIC ACID 500 MG TABLET PO SCH ×3 (08:41→22:13)
[2020-11-06] MEDS: glipiZIDE 5 MG TAB PO SCH ×2 (08:41→16:13)
[2020-11-06] MEDS: VITAMIN D 1000 UNIT TAB PO SCH (08:41)
[2020-11-06] MEDS: ZINC SULFATE 220 MG CAP PO SCH (08:41)
[2020-11-06] MEDS: METFORMIN HCL 500 MG TAB PO SCH ×2 (08:41→16:12)
[2020-11-06] MEDS: FAMOTIDINE 20 MG TAB PO SCH ×2 (08:41→22:12)
[2020-11-06] MEDS: THIAMINE HCL 100 MG TABLET PO SCH ×3 (08:41→22:13)
[2020-11-06] MEDS: LOSARTAN POTASSIUM 50 MG TABLET PO SCH ×2 (08:41→22:12)
[2020-11-06] MEDS: APIXABAN 5 MG TABLET PO SCH ×2 (08:41→22:12)
[2020-11-06] MEDS: METHYLPREDNISOLONE 40 MG INJ IV SCH ×3 (08:42→21:00)
--- NOTE | 2020-11-06 13:35 | P.DS ---
Admission Date: 10/31/20 Discharge Date: 11/06/20 Primary Care Provider: None Disposition: ROUTINE DISCHARGE Discharge Condition: GOOD Reason for Admission: Shortness of breath Consultations: Pulmonary-Dr. Rodriguez Procedures: COVID: Positive CT Scan: FINDINGS: Vascular: The pulmonary arteries are suboptimally opacified, only abl e to be evaluated to the lobar level. No CT evidence of central acute pulmonary thromboembolism. Mild prominence of the main pulmonary trunk, measuring up to 3.1 cm in diameter. No evidence of aortic aneurysm or dissection. Lungs and pleura: Moderate multifocal interstitial thickening and consolidations throughout all lobes, with some peripheral predominance. No pleural effusion. No pneumothorax. Mediastinum and neck: No mediastinal lymphadenopathy by CT size criteria. Unremarkable appearance of the thyroid gland. Cardiac: No cardiomegaly or pericardial effusion. No thoracic aortic aneurysm or dissection. Abdomen: Hepatic steatosis. Musculoskeletal: No concerning osseous abnormality. IMPRESSION: 1. Suboptimal contrast opacification. No evidence of central pulmonary embolism. 2. Mild prominence of the main pulmonary trunk, possibly sequela of pulmonary arterial hypertension. 3. Moderate interstitial thickening and consolidation throughout the lungs. Correlate for infectious or inflammatory process. Medical Problem List: Dyspnea secondary to acute respiratory failure related to bilateral COVID 19 pneumonia Hypertension Diabetes mellitus type 2 with hyperglycemia, new Brief History of Present Illness: 50-year-old female past medical history of HTN, obesity, recent right ankle fracture post fall s/p ORIF 1 month ago presented today because of worsening shortness of breath, cough and wheezing. She denies any fever. On presentation in the ED she was noted with O2 sats of 89% on room air with i ncreased work of breathing. Her saturation has improved now to above 92% with 2 L nasal cannula. She has upper airway wheeze which improved with duo nebs. Chest x-ray and CT imaging shows no evidence of pulmonary emboli seen breath interstitial changes consistent with possible infectious pneumonitis. Her covid 19 screen is positive. She has been admitted for covid bilateral pneumonia with hypoxic respiratory failure Hospital Course: Patient presented with dyspnea secondary to acute respiratory failure related to bilateral COVID 19 pneumonia. During the course of her stay patient received IV steroids, supplementation and ivermectin. Patient slowly improved. At discharge patient without significant shortness of breath. Patient still requires oxygen at discharge. At discharge the patient will continue with prednisone 20 mg 1 pill twice daily for 7 days then 1 pill once daily for 7 days. The patient will continue with home oxygen to maintain sats above 93%. Patient currently on 3 L per nasal cannula. Arrangements for home oxygen will be arranged with nursing home social worker. At discharge the patient will also continue with Eliquis 5 mg 1 pill twice daily for 15 days due to risk of pulmonary embolism. At discharge the patient will also continue with supplementation including vitamin-C 500 mg 3 times a day, vitamin-D 2000 units daily, thiamine 100 mg 1 pill twice daily, melatonin 5 mg daily at bedtime, and zinc 220 mg daily. At discharge patient will continue with incentive spirometer, ambulation and proning. Recommend to continue with CDC guidelines on COVID 19 including isolation. At discharge she will continue with face could mask to use, social distance seen, and hand washing. Patient will follow up with pulmonology within 1 week to follow up this hospitalization and continue her care. Patient plans to establish care locally with Dr. Mcdonnell to continue her care is well. Patient with hypertension. Blood pressure stable on current medication. At discharge she will continue with losartan 50 mg 1 pill twice daily. Recommend to maintain blood pressure less than 130/80. Further adjustment can be done by her PCP. Patient with diabetes mellitus type 2. Patient initially had hyperglycemia. Patient found to have diabetes. Hemoglobin A1c 7.2. At discharge the patient will continue with glipizide 5 mg 1 pill twice daily and metformin 1000 mg 1 pill twice daily. Recommend to monitor blood sugars at least twice daily. Recommend to maintain blood sugar less than 140 fasting and less than 200 after meals. Further adjustment can be done by her PCP. Patient plans to establish care locally with PCP to further monitor. Recommend to recheck A1c in 3 months to monitor her progress. Education on diabetes and new medication will be provided. May need to hold glipizide if blood sugar less than 100. Vital Signs/Physical Exam: Temp Pulse Resp BP Pulse Ox 98.1 F 62 16 114/61 93 11/06/20 12:00 11/06/20 12:00 11/06/20 12:00 11/06/20 12:11/06/20 12:00 General: Alert, In no apparent distress, Oriented x3, Cooperative HEENT: Atraumatic Neck: Supple Respiratory: Clear to auscultation bilaterally, Normal air movement Cardiovascular: Normal pulses, Regular rate/rhythm Gastrointestinal: Normal bowel sounds, No tenderness, No masses, No rebound, No guarding Musculoskeletal: No erythema, No tenderness, No warmth Neurological: Normal speech, Normal strength at 5/5 x4 extr, Normal tone, Normal affect Laboratory Data at Discharge: WBC 12.10 K/uL (4.3-10.9) H 11/06/20 04:37 Hgb 12.7 g/dL (12.0-15.0) 11/06/20 04:37 Hct 38.9 % (36.0-45.0) 11/06/20 04:37 Plt Count 467 K/uL (152-406) H 11/06/20 04:37 PT 12.3 SECONDS (9.5-12.5) 10/31/20 02:43 INR 1.07 10/31/20 02:43 APTT 30.4 SECONDS (24.3-36.9) 10/31/20 02:43 Sodium 136 mmol/L (136-145) 11/06/20 04:37 Potassium 4.4 mmol/L (3.5-5.1) 11/06/20 04:37 BUN 23 mg/dL (7-18) H 11/06/20 04:37 Creatinine 0.76 mg/dL (0.55-1.3) 11/06/20 04:37 Glucose 238 mg/dL (74-106) H 11/06/20 04:37 Magnesium 2.4 mg/dL (1.8-2.4) 11/06/20 04:37 Total Bilirubin 0.4 mg/dL (0.2-1.0) 11/02/20 03:35 AST 35 U/L (15-37) 11/02/20 03:35 ALT 50 U/L (12-78) 11/02/20 03:35 Alkaline Phosphatase 85 U/L (45-117) 11/02/20 03:35 Amylase 28 U/L (25-115) 10/31/20 02:43 Lipase 84 U/L (73-393) 10/31/20 02:43 Home Medications: Apixaban [Eliquis] 5 mg PO BID #15 tablet 11/06/20 Ascorbic Acid [Vitamin C*] 500 mg PO TID #90 tablet 11/06/20 Cholecalciferol (Vitamin D3) [Vitamin D 1000 Iu Tab*] 2,000 unit PO DAILY #60 tab 11/06/20 Losartan Potassium [Cozaar*] 50 mg PO BID #60 tablet 11/06/20 Melatonin 5 mg PO BEDTIME #90 tablet 11/06/20 Metformin HCl 1,000 mg PO BID #60 tablet 11/06/20 Thiamine HCl [Vitamin B-1*] 100 mg PO BID #60 tablet 11/06/20 Zinc Sulfate [Zinc Sulfate*] 220 mg PO DAILY #90 cap 11/06/20 glipiZIDE [Glucotrol*] 5 mg PO BIDWM #60 tab 11/06/20 predniSONE [Prednisone] 20 mg PO SEECOM #21 tablet 11/06/20 New Medications: Losartan Potassium [Cozaar*] 50 mg PO BID #60 tablet Apixaban [Eliquis] 5 mg PO BID #15 tablet glipiZIDE [Glucotrol*] 5 mg PO BIDWM #60 tab Melatonin 5 mg PO BEDTIME #90 tablet Metformin HCl 1,000 mg PO BID #60 tablet predniSONE [Prednisone] 20 mg PO SEECOM #21 tablet Thiamine HCl [Vitamin B-1*] 100 mg PO BID #60 tablet Ascorbic Acid [Vitamin C*] 500 mg PO TID #90 tablet Cholecalciferol (Vitamin D3) [Vitamin D 1000 Iu Tab*] 2,000 unit PO DAILY #60 tab Zinc Sulfate [Zinc Sulfate*] 220 mg PO DAILY #90 cap Physician Discharge Instructions: Patient presented with dyspnea secondary to acute respiratory failure related to bilateral COVID 19 pneumonia. During the course of her stay patient received IV steroids, supplementation and ivermectin. Patient slowly improved. At discharge patient without significant shortness of breath. Patient still requires oxygen at discharge. At discharge the patient will continue with prednisone 20 mg 1 pill twice daily for 7 days then 1 pill once daily for 7 days. The patient will continue with home oxygen to maintain sats above 93%. Patient currently on 3 L per nasal cannula. Arrangements for home oxygen will be arranged with nursing home social worker. At discharge the patient will also continue with Eliquis 5 mg 1 pill twice daily for 15 days due to risk of pulmonary embolism. At discharge the patient will also continue with supplementation including vitamin-C 500 mg 3 times a day, vitamin-D 2000 units daily, thiamine 100 mg 1 pill twice daily, melatonin 5 mg daily at bedtime, and zinc 220 mg daily. At discharge patient will continue with incentive spirometer, ambulation and proning. Recommend to continue with CDC guidelines on COVID 19 including isolation. At discharge she will continue with face could mask to use, social distance seen, and hand washing. Patient will follow up with pulmonology within 1 week to follow up this hospitalization and continue her care. Patient plans to establish care locally with Dr. Mcdonnell to continue her care is well. Patient with hypertension. Blood pressure stable on current medication. At discharge she will continue with losartan 50 mg 1 pill twice daily. Recommend to maintain blood pressure less than 130/80. Further adjustment can be done by her PCP. Patient with diabetes mellitus type 2. Patient initially had hyperglycemia. Patient found to have diabetes. Hemoglobin A1c 7.2. At discharge the patient will continue with glipizide 5 mg 1 pill twice daily and metformin 1000 mg 1 pill twice daily. Recommend to monitor blood sugars at least twice daily. Recommend to maintain blood sugar less than 140 fasting and less than 200 after meals. Further adjustment can be done by her PCP. Patient plans to establish care locally with PCP to further monitor. Recommend to recheck A1c in 3 months to monitor her progress. Education on diabetes and new medication will be provided. May need to hold glipizide if blood sugar less than 100. Diet: ADA Activity: Fall precautions Followup: NONE,NONE [Primary Care Provider] - Time spent managing pt's care (in minutes): 55
[2020-11-06] MEDS: MELATONIN 5 MG TABLET PO SCH (22:12)
[2020-11-07] MEDS: IPRATROPIUM BROM 0.5MG/2.5ML NEB SCH ×2 (01:20→07:55)
[2020-11-07 04:53] VITALS: O2SAT 93
[2020-11-07] MEDS: INSULIN -REGULAR HUMAN 50 UNIT/0.5 ML ML SQ SCH (07:30)
[2020-11-07 08:30] VITALS: BP 121/73; TEMP 96.9
[2020-11-07] MEDS: LOSARTAN POTASSIUM 50 MG TABLET PO SCH (08:54)
[2020-11-07] MEDS: METFORMIN HCL 500 MG TAB PO SCH (08:54)
[2020-11-07] MEDS: THIAMINE HCL 100 MG TABLET PO SCH (08:54)
[2020-11-07] MEDS: VITAMIN D 1000 UNIT TAB PO SCH (08:54)
[2020-11-07] MEDS: glipiZIDE 5 MG TAB PO SCH (08:54)
[2020-11-07] MEDS: FAMOTIDINE 20 MG TAB PO SCH (08:54)
[2020-11-07] MEDS: METHYLPREDNISOLONE 40 MG INJ IV SCH (08:55)
[2020-11-07] MEDS: ZINC SULFATE 220 MG CAP PO SCH (08:55)
[2020-11-07] MEDS: APIXABAN 5 MG TABLET PO SCH (08:55)
[2020-11-07] MEDS: ASCORBIC ACID 500 MG TABLET PO SCH (08:57)
== END 2020-11-07 10:20 | disposition home or self-care (01) | DRG 177 ==
LOC: ER 16:52 → 4TH 23:02 → OBSVTOIN 10-31 11:12
PROVIDERS: ADMIT Internal Medicine; ATTEND Hospitalist
DX: U07.1 COVID-19 (principal); J12.82 Pneumonia due to coronavirus disease 2019; J96.01 Acute respiratory failure with hypoxia; J44.0 Chronic obstructive pulmonary disease with (acute) lower respiratory infection; J20.9 Acute bronchitis, unspecified; E11.65 Type 2 diabetes mellitus with hyperglycemia; I10 Essential (primary) hypertension; S82.891D Other fracture of right lower leg, subsequent encounter for closed fracture with routine healing; Z79.01 Long term (current) use of anticoagulants; Z90.49 Acquired absence of other specified parts of digestive tract; Z79.84 Long term (current) use of oral hypoglycemic drugs; Z79.899 Other long term (current) drug therapy; Z79.52 Long term (current) use of systemic steroids
CPT/HCPCS: 0240U; 36415; 71045; 71275; 80048; 80053; 80076; 81003; 82150; 82728; 82947; 83036; 83605; 83690; 83735; 83880; 84484; 85025; 85379; 85610; 85730; 86140; 87040; 87070; 87081; 93005; 94760; 96374; 97161; 97530; 99285; G0378; J1650; J2920; J2930; J7512; J8540; Q9967

== ENCOUNTER → 2023-10-21 | Emergency (ER) | payer OTHER, SELFPAY ==
[~2023-10-21] MED LIST: KETOROLAC 30 MG/ML INJ ONE; MORPHINE 4 MG/ML SYR ONE; NA CHLORIDE 0.9% 1,000 ML ONE; ONDANSETRON 4 MG/2 ML VIAL ONE
--- OUTSIDE RECORDS SUMMARY | 2023-10-21 09:39 | XMS REPORT | Continuity of Care Document ---
Author Name Unknown Address [address] [place] [address] [facility] thconnect Address [address] [place] [address] Care Team Providers Care Level Vial Sealer Name Role Phone PCP, PATIENT DOES NOT HAVE A Primary Care Physic uriel Unavailable YURY BRUCE Attending Clinician Unavailable Yury Bruce MD Attending Clinician BERTA COYNE Attending Clinician Unavailable Berta Ruth Attending Clinician YURY BRUCE Admitting Clinician Unavailable BERTA COYNE Admitting Clinician Unavailable Payers Payer Name Policy Type Policy Number Effective Date Expirati on Date Source MEDICAID ALIEN PENDING PENDING 2023 00:00:00 2023 00:00:00 Problems Condition Name Condition Details Condition Category Status Onset Date Resolution Date Last Treatment Date Treating Clinician Comments Source No known active problems No known active problems Disease [facility] Allergies, Adverse Reactions, Alerts Allergy Name Allergy Type Status Severity Reaction(s) Onset Date Inactive Date Treating Clinician Comments Source NO KNOWN ALLERGIE S Drug Class Active [facility] Social History Social Habit Start Date Stop Date Quantity Comments Source Sexual orientation U [facility] Exposure to SARS-CoV-2 (event) 2022-08-24 00:00:00 2022-09-03 22:26:00 Not sure [facility] Sex Assigned At 1970 00:00:00 1970 00:00:00 [facility] Smoking Status Start Date Stop Date Source Tobacco smoking consumption unknown [facility] Medications Ordered Medication Name Filled Medication Name Start Date Stop Date Current Medication? Ordering Clinician Indication Dosage Frequency Signature (SIG) Comments Components Source hyoscyamine sulfate (LEVSIN/SL) sublingual tablet 0.25 mg 2022-09 02:00: 00 06-11 02:25 :00 No .25mg 0.25 mg, Sublingual , ONCE NOW, 1 dose, On Sat06/10/23 at 2100, [facility] ketorolac (TORADOL) injection 30 mg 2022-09 01:45: 00 06-11 02:25 :00 No 30mg 30 mg, Intramuscu lar, ONCE NOW, 1 dose, On Sat06/10/23 at 2045, [facility] cefTRIAXone (ROCEPHIN) 1,000 mg in NaCl 0.9% (NS) 100 mL MINI-BAG 2022-09 01:00: 00 06-11 02:54 :00 No 1000mg 1,000 mg, IV Piggyback, ONCE, 1 dose, On Sat06/10/23 at 2000, Administer over 30 Minutes, 100 mL
Reas on for Anti-Infec tive: Documented Infection< br>Documen yoandy Infection Site: Urine
D uration of Therapy: Other (see Comments) [facility] lactulose (CEPHULAC) solution 45 mL 2022-09 01:00: 00 06-11 02:25 :00 No 45mL 45 mL, Oral, ONCE, 1 dose, On Sat06/10/23 at 2000, [facility] bisacodyL 5 mg EC tablet 2022-09 00:00: 00 Yes [id number] 10mg Take 2 tablets by mouth once daily as needed for Constipati on. [facility] Saccharomyc es boulardii (FLORASTOR) 250 mg capsule 2022-09 00:00: 00 Yes [id number] 250mg Take 1 capsule by mouth 2 (two) times daily. [facility] cefpodoxime 200 mg tablet 2022-09 00:00: 00 Yes [id number] 200mg Take 1 tablet by mouth 2 (two) times daily. [facility] hyoscyamine sulfate (LEVSIN/SL) 0.125 mg sublingual tablet 2022-09 00:00: 00 Yes [id number] 2 tablets under the tongue every 6 (six) hours as needed (Abdominal pain or cramping). [facility] ketorolac 10 mg tablet 2022-09 00:00: 00 Yes [id number] 10mg Take 1 tablet by mouth every 6 (six) hours as needed for Pain (scale 4-6) or Pain (scale 7-10). [facility] cyclobenzap rine (FLEXERIL) tablet 10 mg 09-04 02:00: 00 Yes 10mg 10 mg, Oral, TID, First dose on Sat09/03/22 at 2000, Until Discontinu ed, [facility] ibuprofen (IBU) tablet 600 mg 09-04 01:15: 00 09-04 03:02 :00 No 600mg 600 mg, Oral, ONCE, 1 dose, On Sat09/03/22 at 1914, [facility] HYDROcodone -acetaminop hen (NORCO 5) 5-325 mg tablet 1 tablet 09-04 01:15: 00 09-04 03:02 :00 No 1{tbl} 1 tablet, Oral, ONCE, 1 dose, On Sat09/03/22 at 1914, [facility] dexamethaso ne sod phos PF injection 10 mg 09-04 01:15: 00 09-04 03:02 :00 No 10mg 10 mg, Intramuscu lar, ONCE, 1 dose, On Sat09/03/22 at 1914, 1 mL [facility] ibuprofen 600 mg tablet 09-03 00:00: 00 Yes [id number] 600mg Take 1 tablet by mouth every 6 (six) hours as needed for Pain (scale 4-6) for up to 30 doses. [facility] methylPREDN ISolone 4 mg tablets 09-03 00:00: 00 Yes [id number] Take by mouth SEE-INSTRU CTIONS. follow package directions [facility] ibuprofen 600 mg tablet 09-03 00:00: 00 Yes [id number] 600mg Take 1 tablet by mouth every 6 (six) hours as needed for Pain (scale 4-6) for up to 30 doses. [facility] methylPREDN ISolone 4 mg tablets 09-03 00:00: 00 Yes [id number] Take by mouth SEE-INSTRU CTIONS. follow package directions [facility] cyclobenzap rine 10 mg tablet 09-03 00:00: 00 09-19 05:59 :00 No [id number] 10mg Take 1 tablet by mouth 3 (three) times daily as needed for Muscle Spasms for up to 15 days. [facility] Vital Signs Vital Name Observation Time Observation Value Comments S jojo Systolic blood pressure 2023-06-11 02:30:00 172 mm[Hg] [facility] Diastolic blood pressure 2023-06-11 02:30:00 104 mm[Hg] [facility] Heart rate 2023-06-11 02:30:00 71 /min [facility] Body temperature 2023-06-11 02:30:00 37.11 Yissel [facility] Respiratory rate 2023-06-11 02:30:00 18 /min [facility] Oxygen saturation in Arterial blood by Pulse oximetry 2023-06-11 02:30:00 97 /min [facility] Body height 2023-06-10 22:37:00 165.1 cm [facility] Body weight 2023-06-10 22:37:00 95.255 kg [facility] BMI 2023-06-10 22:37:00 34.95 kg/m2 [facility] Systolic blood pressure 2022-09-04 04:28:44 174 mm[Hg] [facility] Diastolic blood pressure 2022-09-04 04:28:44 92 mm[Hg] [facility] Heart rate 2022-09-04 04:28:44 60 /min [facility] Respiratory rate 2022-09-04 04:28:44 18 /min [facility] Oxygen saturation in Arterial blood by Pulse oximetry 2022-09-04 04:28:44 97 /min [facility] Body height 2022-09-04 00:46:00 160 cm [facility] Body weight 2022-09-04 00:46:00 99.791 kg [facility] BMI 2022-09-04 00:46:00 38.97 kg/m2 [facility] Body temperature 2022-09-04 00:42:00 36.78 Yissel [facility] Procedures Procedure Date / Time Performed Performing Clinicia n Source ASSIGNMENT OF BENEFITS 2023-06-10 23:27:40 Docto r Unassigned, [facility] COMP. METABOLIC PANEL ([id number]) 2023-06-10 23:13:00 Yury Bruce [facility] CBC WITH DIFF 2023-06-10 23:13:00 Yury Bruce [facility] URINALYSIS 2023-06-10 23:13:00 Yury Bruce [facility] XR ABDOMEN 2 2023-06-10 23:05:00 Yury Bruce [facility] NOTICE OF PRIVACY PRACTICES 2023-06-10 22:30:54 Doctor Unassigned, [facility] CONSENT/REFUSAL FOR DIAGNOSIS AND TREATMENT 2023-06-10 22:30:17 Doctor Unassigned, [place] XR LUMBAR SPINE 2 2022-09-04 02:48:00 Cuong Coyne [facility] Encounters Start Date/Time End Date/Time Encounter Type Admission Type Attending Clinicians Care Facility Care Department Encounter ID Source 2023-06-10 17:42:00 2023-06-10 22:00:00 Emergency X YURY BRUCE [facility] [id number] [facility] 2023-06-10 17:42:00 2023-06-10 22:00:00 Emergency Yury Bruce [facility] [id number] [facility] 2022-09-03 18:47:00 2022-09-03 22:50:00 Emergency X BERTA COYNE [facility] ERT [id number] [facility] 2022-09-03 18:47:00 2022-09-03 22:50:00 Emergency Berta Coyne [facility] [id number] [facility] Results Test Description Test Time Test Comments Results Result Co mments Source [facility] WITH [id number] 23:48:51* Test Item Value Reference Range Interpretation Comme nts WBC (test code = 6690-2) 11.58 See_Comment H [Automated [employer] ge] The system which generated this result transmitted reference range: 4.30 - 11.10 10*3/?L. The reference range was not used to interpret this result as normal/abnormal. RBC (test code = 789-8) 4.74 See_Comment [Automated [employer]] The system which generated this result transmitted reference range: 3.93 - 5.25 10*6/?L. The reference range was not used to interpret this result as normal/abnormal. HGB (test code = 718-7) 13.6 g/dL 11.6-15.0 HCT (test code = 4544-3) 42.2 % 35.7-45.2 MCV (test code = 787-2) 89.0 fL 80.6-95.5 MCH (test code = 785-6) 28.7 pg 25.9-32.8 MCHC (test code = 786-4) 32.2 g/dL 31.6-35.1 RDW-SD (test code = 66259-6) 42.9 fL 39.0-49.9 RDW-CV (test code = 788-0) 13.2 % 12.0-15.5 PLT (test code = 777-3) 338 See_Comment [Automated messa ge] The system which generated this result transmitted reference range: 166 - 358 10*3/?L. The reference range was not used to interpret this result as normal/abnormal. MPV (test code = 29744-2) 10.9 fL 9.5-12.9 NRBC/100 WBC (test code = 8391132574) 0.0 See_Comment [Automated me ssage] The system which generated this result transmitted reference range: 0.0 - 10.0 /100 WBCs. The reference range was not used to interpret this result as normal/abnormal. NRBC x10^3 (test code = 6370635612) See_Comment [Automated messa ge] The system which generated this result transmitted reference range: 10*3/?L. The reference range was not used to interpret this result as normal/abnormal. GRAN MAT (NEUT) % (test code = 770-8) 62.8 % IMM GRAN % (test code = 4532775651) 0.30 % LYMPH % (test code = 736-9) 28.2 % MONO % (test code = 5905-5) 5.6 % EOS % (test code = 713-8) 2.2 % BASO % (test code = 706-2) 0.9 % GRAN MAT x10^3(ANC) (test code = 3932520178) 7.27 10*3/uL 1.88-7.09 H IMM GRAN x10^3 (test code = 0310550188) 0.04 10*3/uL 0.00-0.06 LYMPH x10^3 (test code = 731-0) 3.27 10*3/uL 1.32-3.29 MONO x10^3 (test code = 742-7) 0.65 10*3/uL 0.33-0.92 EOS x10^3 (test code = 711-2) 0.25 10*3/uL 0.03-0.39 BASO x10^3 (test code = 704-7) 0.10 10*3/uL 0.01-0.07 H Lab Interpretation (test code = 67555-9) Abnormal [facility]
[2023-10-21 10:00] LABS: Absolute Lymphocytes (CBC) 2.6 K/uL (0.7-4.9); Hematocrit 42.7 % (36.0-45.0); Lymphocytes % 18.8 % (15.3-44.8); MCV 87.6 fL (80-100); MPV 8.6 fL (7.6-11.3); Platelets 385 thou/uL (152-406); RBC Red Blood Cell Count 4.88 M/uL (3.86-4.86)
[2023-10-21 10:08] LABS: Specific Gravity 1.007 (1.005-1.030)
[2023-10-21 10:12] LABS: Specific Gravity 1.007 (1.005-1.030); Urine Bilirubin NEGATIVE (Negative); Urine Blood Negative (Negative); Urine Clarity Clear (Clear); Urine Color Colorless (Yellow); Urine Glucose NEGATIVE (Negative); Urine Protein NEGATIVE (Negative); Urine Urobilinogen Normal (Normal)
[2023-10-21 10:18] LABS: Albumin 3.5 g/dL (3.4-5.0); Bilirubin Total 0.3 mg/dL (0.2-1.0); Potassium 4.1 mEq/L (3.5-5.1); Protein, Total 8.2 g/dL (6.4-8.2)
--- NOTE | 2023-10-21 11:29 | RAD REPORT ---
EXAM DESCRIPTION: CT - Abdomen Pelvis W Contrast - 10/21/2023 10:47 am CLINICAL HISTORY: Abdominal pain right lower quadrant pain COMPARISON: none. TECHNIQUE: Computed axial tomography of the abdomen pelvis was obtained. 100 cc [id number] was admin istered intravenously. Oral contrast was not requested which limits evaluation of bowel and appendix All CT scans are performed using dose optimization technique as appropriate and may include automated exposure control or mA/KV adjustment according to patient size. FINDINGS: The liver, spleen, pancreas, adrenal and kidneys appear unremarkable. Cholecystectomy There is no evidence of diverticulitis. Normal appendix No adnexal mass IMPRESSION: No acute abnormality is displayed.
--- NOTE | 2023-10-21 13:18 | RAD REPORT ---
EXAM DESCRIPTION: US - Transvaginal Study Probe - 10/21/2023 12:37 pm CLINICAL HISTORY: RT PELVIC PAIN COMPARISON: Abdomen Pelvis W Contrast dated 10/21/2023; Pelvis Complete dated 10/21/2023 TECHNIQUE: Sonographic grayscale and color flow images of the pelvis were obtained through transabd ominal and transvaginal approaches. FINDINGS: The uterus is normal in size, shape and echotexture. The uterus measures 9.2 cm in length. Few nabothian cysts of the cervix . The endometrial stripe measures 7 mm in thickness, with focal thickening near the fundus. Both ovaries are normal in size, shape and echotexture. The right ovary measures 2.3 x 1.8 x 0.9 cm. The left ovary measures 2.8 x 1.8 x 2.4 cm. No ovarian or parovarian lesions. No adnexal masses. Normal Doppler blood flow was demonstrated to both ovaries. No significant pelvic ascites. IMPRESSION: Focal thickening of the endometrial stripe near the fundus, nonspecific, but may represe nt a small polyp. A follow-up pelvic ultrasound is recommended in 6-10 weeks to ensure absence of a s uspicious focal endometrial lesion.
--- NOTE | 2023-10-21 13:30 | RAD REPORT ---
EXAM DESCRIPTION: US - Pelvis Complete - 10/21/2023 1:16 pm CLINICAL HISTORY: lower abdomen pain;Abd pain COMPARISON: Transvaginal Study Probe dated 10/21/2023 TECHNIQUE: Sonographic grayscale and color flow images of the pelvis were obtained through transabdominal and transvaginal approaches. FINDINGS: The uterus is normal in size, shape and echotexture. The uterus measures 9.2 cm in length. Few nabothian cysts of the cervix . The endometrial stripe measures 7 mm in thickness, with focal thickening near the fundus. Both ovaries are normal in size, shape and echotexture. The right ovary measures 2.3 x 1.8 x 0.9 cm. The left ovary measures 2.8 x 1.8 x 2.4 cm. No ovarian or parovarian lesions. No adnexal masses. Normal Doppler blood flow was demonstrated to both ovaries. No significant pelvic ascites. IMPRESSION: Focal thickening of the endometrial stripe near the fundus, nonspecific, but may represent a small polyp. A follow-up pelvic ultrasound is recommended in 6-10 weeks to ensure absence of a suspicious focal endometrial lesion.
--- NOTE | 2023-10-21 13:41 | ER ---
Nurse's Notes [facility] Name: Maite Dumont Age: 53 yrs Sex: Female : 1970 Arrival Date: 10/21/2023 Time: 09:36 Bed 20 Private MD: Diagnosis: Abdominal pain, unspecified;Diarrhea, unspecified Presentation: 10/21 09:51 Chief complaint: Patient states: RLQ abdominal pain with nausea and diarrhea for 3 ll1 days. No fever. Diffuse abdominal pain today. Coronavirus screen: Client denies travel out of the [place] in the last 14 days. At this time, the client does not indicate any symptoms associated with coronavirus-19. Ebola Screen: Patient denies travel to an Ebola-affected area in the 21 days before illness onset. Initial Sepsis Screen: Does the patient meet any 2 criteria? No. Patient's initial sepsis screen is negative. Does the patient have a suspected source of infection? Yes: Acute abdominal pain. Risk Assessment: Do you want to hurt yourself or someone else? Patient reports no desire to harm self or others. Onset of symptoms was October 18, 2023. 09:51 Method Of Arrival: Ambulatory ll1 09:51 Acuity: ERIN 2 ll1 Historical: - PMHx: 09:48 Hypertension; mb9 - PSHx: 09:48 section; Cholecystectomy; Right Ankle; mb9 - Immunization history:: Adult Immunizations up to date. - Social history:: Smoking status: Patient denies any tobacco usage or history of. Screenin:47 [facility] ED Fall Risk Assessment (Adult) History of falling in the last 3 months, mb9 including since admission No falls in past 3 months (0 pts) Confusion or Disorientation No (0 pts) Intoxicated or Sedated No (0 pts) Impaired Gait No (0 pts) Mobility Assist Device Used No (0 pt) Altered Elimination No (0 pt) Score/Fall Risk Level 0 - 2 = Low Risk Oriented to surroundings, Maintained a safe environment, Educated pt \T\ family on fall prevention, incl call for assistance when getting out of bed. Abuse screen: Denies threats or abuse. Nutritional screening: No deficits noted. Tuberculosis screening: No symptoms or risk factors identified. Assessment: 09:56 General: Appears uncomfortable, Behavior is calm, cooperative. Pain: Complains of pain mb9 in abdomen Pain radiates to RLQ Pain currently is 10 out of 10 on a pain scale. Quality of pain is described as throbbing, Pain began 2-3 days ago. Is continuous. Neuro: Mallory Agitation-Sedation Scale (RASS): 0 - Alert and Calm Level of Consciousness is awake, alert, obeys commands, Oriented to person, place, time, situation, Appropriate for age. Cardiovascular: Patient's skin is warm and dry. Respiratory: Airway is patent Respiratory effort is even, unlabored, Respiratory pattern is regular, symmetrical, Breath sounds are clear bilaterally. GI: Abdomen is round non-distended, Bowel sounds present X 4 quads. Abd is soft Abdomen is tender to palpation in right lower quadrant Reports diarrhea, nausea. : No signs and/or symptoms were reported regarding the genitourinary system. EENT: No signs and/or symptoms were reported regarding the EENT system. Derm: Skin is pink, warm \T\ dry. Musculoskeletal: Range of motion: intact in all extremities. 11:27 Reassessment: No changes from previously documented assessment. Patient and/or family mb9 updated on plan of care and expected duration. Pain level reassessed. Patient is alert, oriented x 3, equal unlabored respirations, skin warm/dry/pink. 12:45 Reassessment: No changes from previously documented assessment. Patient and/or family mb9 updated on plan of care and expected duration. Pain level reassessed. Patient is alert, oriented x 3, equal unlabored respirations, skin warm/dry/pink. 13:43 Reassessment: No changes from previously documented assessment. Patient and/or family mb9 updated on plan of care and expected duration. Pain level reassessed. Patient is alert, oriented x 3, equal unlabored respirations, skin warm/dry/pink. Vital Signs: 09:51 BP 184 / 98; Pulse 70; Resp 18; Temp 97.6; Pulse Ox 99% on R/A; Pain 10/10; ll1 09:57 Weight 102.06 kg; Height 4 ft. 11 in. ; mb9 09:57 Pain 10/10; mb9 10:33 BP 138 / 87; Pulse 70; Resp 18; Pulse Ox 95% on R/A; mb9 12:57 BP 139 / 93; Pulse 76; Resp 18; Pulse Ox 97% on R/A; mb9 13:43 BP 150 / 92; Pulse 78; Resp 18; Pulse Ox 100% on R/A; mb9 09:57 Body Mass Index 45.44 (102.06 kg, 149.86 cm) mb9 09:51 Pain Scale: Adult ll1 09:57 Pain Scale: Adult mb9 ED Course: 09:37 Patient arrived in ED. rg4 09:40 Aston De Leon PA is PHCP. cp 09:40 Joey Ramachandran MD is Attending Physician. cp 09:40 Attending Physician role handed off by Joey Ramachandran MD cp 09:40 Aston Kam MD is Attending Physician. cp 09:46 Leida Barnes RN is Primary Nurse. mb9 09:47 Arm band placed on. mb9 09:47 Placed in gown. Bed in low position. Call light in reach. Side rails up X 1. Client mb9 placed on continuous cardiac and pulse oximetry monitoring. NIBP monitoring applied. 09:53 Triage completed. ll1 09:57 Inserted saline lock: 20 gauge in right antecubital area, using aseptic technique. mb9 Blood collected. 09:57 No provider procedures requiring assistance completed. mb9 09:57 CBC with Diff Sent. mb9 09:57 CMP Sent. mb9 09:57 Lipase Sent. mb9 10:47 CT Abd/Pelvis - IV Contrast Only In Process Unspecified. EDMS 12:38 Transvaginal Study Probe In Process Unspecified. EDMS 13:18 US Pelvis Complete In Process Unspecified. EDMS 13:43 IV discontinued, intact, bleeding controlled, No redness/swelling at site. Pressure mb9 dressing applied. Administered Medications: 10:08 Drug: Ondansetron IVP 4 mg IVP once; over 2 minutes Route: IVP; Site: right antecubital;mb9 13:33 Follow up: Response: No adverse reaction mb9 10:12 Drug: morphine IVP or IV 4 mg IVP once over 4 mins Route: IVP; Infused Over: 4 mins; mb9 Site: right antecubital; 13:33 Follow up: Response: No adverse reaction mb9 10:12 Drug: NS 0.9% IV 1000 ml IV at 250 ml/hr Per protocol; 1000 mL bolus Route: IV; Rate: mb9 250 ml/hr; Site: right antecubital; 13:43 Follow up: Response: No adverse reaction; IV Status: Completed infusion mb9 13:34 Drug: Ketorolac IVP 15 mg IVP once Route: IVP; Site: right antecubital; mb9 13:43 Follow up: Response: No adverse reaction mb9 Medication: 09:48 VIS not applicable for this client. mb9 Outcome: 13:41 Discharge ordered by . glenis 13:48 Discharged to home ambulatory, with family, mb9 13:48 Condition: stable 13:48 Discharge instructions given to patient, Instructed on discharge instructions, follow up and referral plans. Demonstrated understanding of instructions, follow-up care, medications, Prescriptions given X 1, 13:49 Patient left the ED. mb9 Signatures: Dispatcher [employer] EDMS Aston De Leon PA PA cp Garcia, Rubi rg4 Tim Gutiérrez, RN RN ll1 Leida Barnes RN RN mb9
--- NOTE | 2023-10-21 13:41 | EDPHYS ---
Physician Documentation [facility] Name: Maite Dumont Age: 53 yrs Sex: Female : 1970 Arrival Date: 10/21/2023 Time: 09:36 Bed 20 Private MD: ED Physician Aston Kam HPI: 10/21 10:00 This 53 yrs old Female presents to ER via Ambulatory with complaints of cp Abdominal Pain, Back Pain. 10:00 The patient presents with abdominal pain right lower quadrant. Onset: The cp symptoms/episode began/occurred 3 day(s) ago. 10:00 The symptoms do not radiate. cp 10:00 Associated signs and symptoms: Pertinent positives: diarrhea, nausea, Pertinent cp negatives: chest pain, constipation, dysuria, fever, vomiting, blood in stool. The symptoms are described as constant. Severity of pain: in the emergency department the pain is actually worse moderately. Historical: - PMHx: 09:48 Hypertension; mb9 - PSHx: 09:48 section; Cholecystectomy; Right Ankle; mb9 - Immunization history:: Adult Immunizations up to date. - Social history:: Smoking status: Patient denies any tobacco usage or history of. ROS: 10:05 Eyes: Negative for injury, pain, redness, and discharge, cp 10:05 Constitutional: Negative for body aches, chills, fever, poor PO intake, 10:05 Cardiovascular: Negative for chest pain, palpitations, 10:05 Respiratory: Negative for cough, shortness of breath, wheezing, 10:05 Abdomen/GI: Positive for abdominal pain, nausea, diarrhea, Negative for vomiting, constipation, black/tarry stool, rectal bleeding, 10:05 Back: Positive for radiated pain, 10:05 : Negative for urinary symptoms, hematuria, vaginal bleeding, 10:05 Neuro: Negative for altered mental status, headache, numbness, weakness, 10:05 All other systems are negative, 10:05 ENT: Negative for drainage from ear(s), ear pain, sore throat, difficulty swallowing, cp difficulty handling secretions, Exam: 10:10 Constitutional: The patient appears in no acute distress, alert, awake, non-toxic, well cp developed, well nourished, obese, 10:10 Head/Face: Normocephalic, atraumatic. cp 10:10 Eyes: Periorbital structures: appear normal, Conjunctiva: normal, no exudate, no injection, Sclera: no appreciated abnormality, Lids and lashes: appear normal, bilaterally, 10:10 ENT: External ear(s): are unremarkable, Nose: is normal, Mouth: Lips: moist, Oral mucosa: pink and intact, moist, Posterior pharynx: Airway: no evidence of obstruction, patent, 10:10 Chest/axilla: Inspection: normal, 10:10 Cardiovascular: Rate: normal, Rhythm: regular, 10:10 Respiratory: the patient does not display signs of respiratory distress, Respirations: normal, no use of accessory muscles, no retractions, labored breathing, is not present, Breath sounds: are clear throughout, no decreased breath sounds, no stridor, no wheezing, 10:10 Abdomen/GI: Inspection: obese Bowel sounds: active, all quadrants, Palpation: soft, in all quadrants, moderate abdominal tenderness, in the right upper quadrant and right lower quadrant, rebound tenderness, is not appreciated, involuntary guarding, is not appreciated, 10:10 Back: ROM is normal, CVA tenderness, is absent, 10:10 Skin: no rash present. 10:10 Neuro: Orientation: to person, place \T\ time. Mentation: is normal, Motor: moves all fours, strength is normal, Sensation: is normal, Vital Signs: 09:51 BP 184 / 98; Pulse 70; Resp 18; Temp 97.6; Pulse Ox 99% on R/A; Pain 10/10; ll1 09:57 Weight 102.06 kg; Height 4 ft. 11 in. ; mb9 09:57 Pain 10/10; mb9 10:33 BP 138 / 87; Pulse 70; Resp 18; Pulse Ox 95% on R/A; mb9 12:57 BP 139 / 93; Pulse 76; Resp 18; Pulse Ox 97% on R/A; mb9 13:43 BP 150 / 92; Pulse 78; Resp 18; Pulse Ox 100% on R/A; mb9 09:57 Body Mass Index 45.44 (102.06 kg, 149.86 cm) mb9 09:51 Pain Scale: Adult ll1 09:57 Pain Scale: Adult mb9 MDM: 09:42 Patient medically screened. cp 10:00 Differential diagnosis: appendicitis, bowel obstruction, Dysmenorrhea, gastritis, cp non-specific abd pain, Pyelonephritis, Ureterolithiasis, urinary tract infection. 13:40 Data reviewed: vital signs, nurses notes, lab test result(s), radiologic studies, CT cp scan, ultrasound. 13:40 I considered the following discharge prescriptions or medication management in the emergency department Medications were administered in the Emergency Department. See MAR. Care significantly affected by the following chronic conditions: Hypertension, Obesity. Counseling: I had a detailed discussion with the patient and/or guardian regarding the historical points, exam findings, and any diagnostic results supporting the discharge/admit diagnosis, lab results, radiology results, to return to the emergency department if symptoms worsen or persist or if there are any questions or concerns that arise at home. Special discussion: Based on the patient's Hx, exam, and Dx evaluation, there is no indication for emergent surgery or inpatient Tx. It is understood by the patient/guardian that if the Sx's persist or worsen they need to return immediately for re-evaluation. 10/21 09:47 Order name: CBC with Diff; Complete Time: 10:25 10/21 10:25 Interpretation: Normal except: WBC 14.00; RBC 4.88; NEUT A 10.2. 10/21 09:47 Order name: CMP; Complete Time: 10:25 10/21 09:47 Order name: Lipase; Complete Time: 10:25 10/21 09:47 Order name: Test, Urine; Complete Time: 10:25 10/21 09:47 Order name: Urinalysis w/ reflexes; Complete Time: 10:25 10/21 11:36 Interpretation: Reviewed. 10/21 10:02 Order name: CT Abd/Pelvis - IV Contrast Only; Complete Time: 11:35 10/21 11:37 Order name: US Pelvis Complete 10/21 12:38 Order name: Transvaginal Study Probe; Complete Time: 13:26 EDMS 10/21 09:47 Order name: IV Saline Lock; Complete Time: 09:57 10/21 09:47 Order name: Labs collected and sent; Complete Time: 09:57 Administered Medications: 10:08 Drug: Ondansetron IVP 4 mg IVP once; over 2 minutes Route: IVP; Site: right antecubital;mb9 13:33 Follow up: Response: No adverse reaction mb9 10:12 Drug: morphine IVP or IV 4 mg IVP once over 4 mins Route: IVP; Infused Over: 4 mins; mb9 Site: right antecubital; 13:33 Follow up: Response: No adverse reaction mb9 10:12 Drug: NS 0.9% IV 1000 ml IV at 250 ml/hr Per protocol; 1000 mL bolus Route: IV; Rate: mb9 250 ml/hr; Site: right antecubital; 13:43 Follow up: Response: No adverse reaction; IV Status: Completed infusion mb9 13:34 Drug: Ketorolac IVP 15 mg IVP once Route: IVP; Site: right antecubital; mb9 13:43 Follow up: Response: No adverse reaction mb9 Disposition Summary: 10/21/23 13:41 Discharge Ordered Notes: Location: Home cp Problem: new cp Symptoms: have improved cp Condition: Stable cp Diagnosis - Abdominal pain, unspecified cp - Diarrhea, unspecified cp Followup: cp - With: Private Physician - When: 2 - 3 days - Reason: Recheck today's complaints Discharge Instructions: - Discharge Summary Sheet cp - Abdominal Pain, Adult cp - Diarrhea, Adult cp Forms: - Medication Reconciliation Form cp - Thank You Letter cp - Antibiotic Education cp - Prescription Opioid Use cp - Patient Portal Instructions cp - Leadership Thank You Letter cp - Work release form mb9 Prescriptions: - dicyclomine 20 mg Oral tablet - take 1 tablet ORAL route 4 times per day; 30 tablet; Refills: 0, Product cp Selection Permitted Signatures: Dispatcher [employer] EDMS Aston De Leon PA PA cp Lewis, Lynsay RN RN ll1 Leida Barnes RN RN mb9 Corrections: (The following items were deleted from the chart) 18:10/20 10:05 Constitutional: Negative for body aches, chills, fever, poor PO intake, cp cp 10/21 18:10/20 10:05 Cardiovascular: Negative for chest pain, palpitations, cp cp 10/21 18:07 10/20 10:05 Respiratory: Negative for cough, shortness of breath, wheezing, cp cp 10/21 18:10/20 10:05 Eyes: Negative for injury, pain, redness, and discharge, cp cp 10/21 18:07 02/18 10:05 ENT: Negative for drainage from ear(s), ear pain, sore throat, difficulty cp swallowing, difficulty handling secretions, cp 10/21 18:07 10/20 10:05 Abdomen/GI: Positive for abdominal pain, nausea, diarrhea, Negative for cp vomiting, constipation, black/tarry stool, rectal bleeding, cp 10/21 18:10/20 10:05 Back: Positive for radiated pain, cp cp 10/21 18:10/20 10:05 : Negative for urinary symptoms, hematuria, vaginal bleeding, cp cp 10/21 18:07 10/20 10:05 Neuro: Negative for altered mental status, headache, numbness, weakness, cp cp 10/21 18:07 10/20 10:05 All other systems are negative, cp cp
[2023-10-21 14:16] VITALS: BP 150/92; TEMP 97.6; O2SAT 100
== END ==
LOC: ER 09:36
DX: R10.31 Right lower quadrant pain (principal); R19.7 Diarrhea, unspecified
CPT/HCPCS: 36415; 74177; 76830; 76856; 80053; 81003; 81025; 83690; 85025; J2405; J7030; Q9967

== ENCOUNTER → 2023-10-26 | Emergency (ER) | payer SELFPAY ==
[~2023-10-26] MED LIST changes: +DICYCLOMINE HCL 20 MG/2 ML AMP IM ONE; -KETOROLAC 30 MG/ML INJ ONE; -NA CHLORIDE 0.9% 1,000 ML ONE
--- OUTSIDE RECORDS SUMMARY | 2023-10-26 18:50 | XMS REPORT | Continuity of Care Document ---
Author Name Unknown Address [address] [place] [address] [facility] thconnect Address 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 Role Phone PCP, PATIENT DOES NOT [...] problems No known active problems Disease [facility] Allergies, Adverse Reactions, Alerts Allergy Name Allergy Type Status Severity Reaction(s) Onset Date Inactive Date Treating Clinician Comments Source NO KNOWN ALLERGIE S Drug Class Active [facility] Social History Social Habit Start Date Stop Date Quantity Comments Source Sexual orientation U [facility] Exposure to SARS-CoV-2 (event) 2022-08-24 00:00:00 2022-09-03 22:26:00 Not sure [facility] Sex Assigned At 1970 00:00:00 1970 00:00:00 [facility] Smoking Status Start Date Stop Date Source Tobacco smoking consumption unknown [facility] Medications Ordered Medication Name Filled Medication Name Start Date Stop Date Current Medication? Ordering Clinician Indication Dosage Frequency Signature (SIG) Comments Components Source hyoscyamine sulfate (LEVSIN/SL) sublingual tablet 0.25 mg 2022-09 02:00: 00 06-11 02:25 :00 No .25mg 0.25 mg, Sublingual , ONCE NOW, 1 dose, On Sat06/10/23 at 2100, Routine [facility] ketorolac (TORADOL) injection 30 mg 2022-09 01:45: 00 06-11 02:25 :00 No 30mg 30 mg, Intramuscu lar, ONCE NOW, 1 dose, On Sat06/10/23 at 2045, STEVEN [facility] cefTRIAXone (ROCEPHIN) 1,000 mg in NaCl 0.9% (NS) 100 mL MINI-BAG 2022-09 01:00: 00 06-11 02:54 :00 No 1000mg 1,000 mg, IV Piggyback, ONCE, 1 dose, On Sat06/10/23 at 2000, Administer over 30 Minutes, 100 mL
Reas on for Anti-Infec tive: Documented Infection< br>Documen yoandy Infection Site: Urine
D uration of Therapy: Other (see Comments) [facility] lactulose (CEPHULAC) solution 45 mL 2022-09 01:00: 00 06-11 02:25 :00 No 45mL 45 mL, Oral, ONCE, 1 dose, On Sat06/10/23 at 2000, STEVEN [facility] bisacodyL 5 mg EC tablet 2022-09 00:00: 00 Yes [id number] 10mg Take 2 tablets by mouth once daily as needed for Constipati on. [facility] Saccharomyc es boulardii (FLORASTOR) 250 mg capsule 2022-09 00:00: 00 Yes [id number] 250mg Take 1 capsule by mouth 2 (two) times daily. [facility] cefpodoxime 200 mg tablet 2022-09 00:00: 00 Yes [id number] 200mg Take 1 tablet by mouth 2 (two) times daily. [facility] hyoscyamine sulfate (LEVSIN/SL) 0.125 mg sublingual tablet 2022-09 00:00: 00 Yes [id number] .25[address] 2 tablets under the tongue every 6 (six) hours as needed (Abdominal pain or cramping). [facility] ketorolac 10 mg tablet 2022-09 00:00: 00 Yes [id number] 10mg Take 1 tablet by mouth every 6 (six) hours as needed for Pain (scale 4-6) or Pain (scale 7-10). [facility] cyclobenzap rine (FLEXERIL) tablet 10 mg 09-04 02:00: 00 Yes 10mg 10 mg, Oral, TID, First dose on Sat09/03/22 at 2000, Until Discontinu ed, Routine [facility] ibuprofen (IBU) tablet 600 mg 09-04 01:15: 00 09-04 03:02 :00 No 600mg 600 mg, Oral, ONCE, 1 dose, On Sat09/03/22 at 1914, [facility] HYDROcodone -acetaminop hen (NORCO 5) 5-325 mg tablet 1 tablet 09-04 01:15: 00 09-04 03:02 :00 No 1{tbl} 1 tablet, Oral, ONCE, 1 dose, On Sat09/03/22 at 1914, [facility] dexamethaso ne sod phos PF injection 10 mg 09-04 01:15: 00 09-04 03:02 :00 No 10mg 10 mg, Intramuscu lar, ONCE, 1 dose, On Sat09/03/22 at 1914, 1 mL [facility] ibuprofen 600 mg tablet 09-03 00:00: 00 Yes [id number] 600mg Take 1 tablet by mouth every 6 (six) hours as needed for Pain (scale 4-6) for up to 30 doses. [facility] methylPREDN ISolone 4 mg tablets 09-03 00:00: 00 Yes [id number] Take by mouth SEE-INSTRU CTIONS. follow package directions [facility] ibuprofen 600 mg tablet 09-03 00:00: 00 Yes [id number] 600mg Take 1 tablet by mouth every 6 (six) hours as needed for Pain (scale 4-6) for up to 30 doses. [facility] methylPREDN ISolone 4 mg tablets 09-03 00:00: 00 Yes [id number] Take by mouth SEE-INSTRU CTIONS. follow package directions [facility] cyclobenzap rine 10 mg tablet 09-03 00:00: 00 09-19 05:59 :00 No [id number] 10mg Take 1 tablet by mouth 3 (three) times daily as needed for Muscle Spasms for up to 15 days. [facility] Vital Signs Vital Name Observation Time Observation Value Comments S jojo Systolic blood pressure 2023-06-11 02:30:00 172 mm[Hg] [facility] Diastolic blood pressure 2023-06-11 02:30:00 104 mm[Hg] [facility] Heart rate 2023-06-11 02:30:00 71 /min [facility] Body temperature 2023-06-11 02:30:00 37.11 Yissel [facility] Respiratory rate 2023-06-11 02:30:00 18 /min [facility] Oxygen saturation in Arterial blood by Pulse oximetry 2023-06-11 02:30:00 97 /min [facility] Body height 2023-06-10 22:37:00 165.1 cm [facility] Body weight 2023-06-10 22:37:00 95.255 kg [facility] BMI 2023-06-10 22:37:00 34.95 kg/m2 [facility] Systolic blood pressure 2022-09-04 04:28:44 174 mm[Hg] [facility] Diastolic blood pressure 2022-09-04 04:28:44 92 mm[Hg] [facility] Heart rate 2022-09-04 04:28:44 60 /min [facility] Respiratory rate 2022-09-04 04:28:44 18 /min [facility] Oxygen saturation in Arterial blood by Pulse oximetry 2022-09-04 04:28:44 97 /min [place] [facility] Body height 2022-09-04 00:46:00 160 cm [facility] Body weight 2022-09-04 00:46:00 99.791 kg [facility] BMI 2022-09-04 00:46:00 38.97 kg/m2 [facility] Body temperature 2022-09-04 00:42:00 36.78 Yissel [facility] Procedures Procedure Date / Time Performed Performing Clinicia n Source ASSIGNMENT OF BENEFITS 2023-06-10 23:27:40 Docto r Unassigned, [place] [facility] COMP. METABOLIC PANEL ([id number]) 2023-06-10 23:13:00 Yury Bruce [facility] CBC WITH DIFF 2023-06-10 23:13:00 Yury Bruce [facility] URINALYSIS 2023-06-10 23:13:00 Yury Bruce [facility] XR ABDOMEN 2 2023-06-10 23:05:00 Yury Bruce [facility] NOTICE OF PRIVACY PRACTICES 2023-06-10 22:30:54 Doctor Unassigned, [place] [facility] CONSENT/REFUSAL FOR DIAGNOSIS AND TREATMENT 2023-06-10 22:30:17 Doctor Unassigned, [place] [facility] XR LUMBAR SPINE 2 2022-09-04 02:48:00 Cuong Coyne [facility] Encounters Start Date/Time End Date/Time Encounter Type Admission Type Attending Clinicians Care Facility Care Department Encounter ID Source 2023-06-10 17:42:00 2023-06-10 22:00:00 Emergency X YURY BRUCE [facility] ERT [id number] [facility] 2023-06-10 17:42:00 2023-06-10 22:00:00 Emergency Yury Bruce [facility] [id number] [facility] 2022-09-03 18:47:00 2022-09-03 22:50:00 Emergency X BERTA COYNE [facility] ERT [id number] [facility] 2022-09-03 18:47:00 2022-09-03 22:50:00 Emergency Berta Coyne [facility] [id number] [facility] Results Test Description Test Time Test Comments Results Result Co mments Source [facility] WITH [id number] 23:48:51* Test Item Value Reference Range Interpretation Comme nts WBC (test code = 6690-2) 11.58 See_Comment H [Automated messa ge] The system which generated this result transmitted reference range: 4.30 - 11.10 10*3/?L. The reference range was not used to interpret this result as normal/abnormal. RBC (test code = 789-8) 4.74 See_Comment [Automated messa ge] The system which [...] 32.2 g/dL 31.6-35.1 RDW-SD (test code = 40645-1) 42.9 fL 39.0-49.9 RDW-CV (test code = 788-0) 13.2 % 12.0-15.5 PLT (test code = 777-3) 338 See_Comment [Automated messa ge] The system which generated this result transmitted reference range: 166 - 358 10*3/?L. The reference range was not used to interpret this result as normal/abnormal. MPV (test code = 94279-0) 10.9 fL 9.5-12.9 NRBC/100 WBC (test code = 2664263484) 0.0 See_Comment [Automated me ssage] The system which generated this result transmitted reference range: 0.0 - 10.0 /100 WBCs. The reference range was not used to interpret this result as normal/abnormal. NRBC x10^3 (test code = 4692005528) See_Comment [Automated messa ge] The system which generated this result transmitted reference range: 10*3/?L. The reference range was not used to interpret this result as normal/abnormal. GRAN MAT (NEUT) % (test code = 770-8) 62.8 % IMM GRAN % (test code = 4652748009) 0.30 % LYMPH % (test code = 736-9) 28.2 % MONO % (test code = 5905-5) 5.6 % EOS % (test code = 713-8) 2.2 % BASO % (test code = 706-2) 0.9 % GRAN MAT x10^3(ANC) (test code = 2721181247) 7.27 10*3/uL 1.88-7.09 H IMM GRAN x10^3 (test code = 1873443634) 0.04 10*3/uL 0.00-0.06 LYMPH x10^3 (test code = 731-0) 3.27 10*3/uL 1.32-3.29 MONO x10^3 (test code = 742-7) 0.65 10*3/uL 0.33-0.92 EOS x10^3 (test code = 711-2) 0.25 10*3/uL 0.03-0.39 BASO x10^3 (test code = 704-7) 0.10 10*3/uL 0.01-0.07 H Lab Interpretation (test code = 16689-7) Abnormal [facility]
[2023-10-26 19:46] LABS: Absolute Lymphocytes (CBC) 3.6 K/uL (0.7-4.9); Hematocrit 40.2 % (36.0-45.0); Lymphocytes % 31.4 % (15.3-44.8); MPV 8.7 fL (7.6-11.3); Platelets 351 thou/uL (152-406); RBC Red Blood Cell Count 4.62 M/uL (3.86-4.86)
[2023-10-26 19:58] LABS: Albumin 3.1 g/dL (3.4-5.0); Bilirubin Total 0.2 mg/dL (0.2-1.0); Potassium 3.7 mEq/L (3.5-5.1); Protein, Total 7.3 g/dL (6.4-8.2)
[2023-10-26 20:27] LABS: Specific Gravity 1.021 (1.005-1.030); Urine Bacteria None Seen /HPF (<20); Urine Bilirubin NEGATIVE (Negative); Urine Blood Negative (Negative); Urine Clarity Clear (Clear); Urine Color Light-Yellow (Yellow); Urine Glucose NEGATIVE (Negative); Urine Mucus Slight /HPF (None Seen); Urine Protein NEGATIVE (Negative); Urine RBC <5 /HPF (None Seen); Urine Urobilinogen Normal (Normal)
--- NOTE | 2023-10-26 20:56 | RAD REPORT ---
EXAM DESCRIPTION: CT - Abdomen Pelvis W Contrast - 10/26/2023 8:05 pm CLINICAL HISTORY: ABD PAIN COMPARISON: Abdomen Pelvis W Contrast dated 10/21/2023 TECHNIQUE: Thin cut axial CT imaging of the abdomen and pelvis was performed following intravenous a dministration of 100 mL Isovue 300. Multiplanar reformats were generated and reviewed. All CT scans are performed using dose optimization technique as appropriate and may include automated exposure control or mA/KV adjustment according to patient size. FINDINGS: No suspicious findings in the lung bases. The liver, spleen, adrenal glands, and pancreas show no suspicious findings. Gallbladder is not visua lized, and could be surgically removed. Symmetric renal function is seen with no hydronephrosis or suspicious renal mass. No dilated bowel loops or bowel wall thickening. Colonic diverticulosis. No free air, free fluid or i nflammatory stranding. No hernia, mass or bulky lymphadenopathy. The urinary bladder is without signi ficant finding. No suspicious bony findings. IMPRESSION: No acute intra-abdominal process. Colonic diverticulosis.
--- NOTE | 2023-10-26 21:04 | ER ---
Nurse's Notes [facility] Name: Maite Dumont Age: 53 yrs Sex: Female : 1970 Arrival Date: 10/26/2023 Time: 18:46 Bed 8 Private MD: Diagnosis: Abdominal pain, unspecified Presentation: 10/26 19:00 Chief complaint: Patient states: Lower abdominal pain that began on 10/17. Pt states cm10 that she was seen at [facility] and was seen here on Saturday for the same pain and was diagnosed with constipation and uterine thickening. PT reports that she is also having nausea and pain when sitting and laying down. Coronavirus screen: Vaccine status: Patient reports being unvaccinated. Client denies travel out of the [place] in the last 14 days. Ebola Screen: Patient denies travel to an Ebola-affected area in the 21 days before illness onset. No symptoms or risks identified at this time. Initial Sepsis Screen: Does the patient meet any 2 criteria? No. Patient's initial sepsis screen is negative. Does the patient have a suspected source of infection? No. Patient's initial sepsis screen is negative. Risk Assessment: Do you want to hurt yourself or someone else? Patient reports no desire to harm self or others. Onset of symptoms was October 26, 2023. 19:00 Method Of Arrival: Wheelchair cm10 19:00 Acuity: ERIN 3 cm10 Triage Assessment: 19:03 General: Appears in no apparent distress. uncomfortable, Behavior is calm, cooperative. cm10 Pain: Complains of pain in suprapubic area, right lower quadrant and left lower quadrant. Neuro: No deficits noted. Level of Consciousness is awake, alert, obeys commands, Oriented to person, place, time, situation. Historical: - Allergies: 19:03 No Known Allergies; cm10 - PMHx: 19:03 Hypertension; cm10 - PSHx: 19:03 section; Cholecystectomy; Right Ankle; cm10 - Immunization history:: Adult Immunizations up to date. - Social history:: Smoking status: Patient denies any tobacco usage or history of. - Family history:: not pertinent. Screenin:12 [facility] ED Fall Risk Assessment (Adult) History of falling in the last 3 months, as9 including since admission No falls in past 3 months (0 pts) Confusion or Disorientation No (0 pts) Intoxicated or Sedated No (0 pts) Impaired Gait No (0 pts) Mobility Assist Device Used No (0 pt) Altered Elimination No (0 pt) Score/Fall Risk Level 0 - 2 = Low Risk Oriented to surroundings, Maintained a safe environment, Educated pt \T\ family on fall prevention, incl call for assistance when getting out of bed. Abuse screen: Denies threats or abuse. Nutritional screening: No deficits noted. Tuberculosis screening: No symptoms or risk factors identified. Assessment: 19:40 General: Appears uncomfortable, Behavior is cooperative, appropriate for age, anxious. as9 Pain: Complains of pain in abdomen Pain. 19:40 Neuro: Level of Consciousness is awake, alert, obeys commands, Oriented to person, as9 place, time, situation, Appropriate for age. Cardiovascular: Capillary refill < 3 seconds Patient's skin is warm and dry. Respiratory: Airway is patent Respiratory effort is even, unlabored, Respiratory pattern is regular, symmetrical. GI: Abd is non tender. : No signs and/or symptoms were reported regarding the genitourinary system. EENT: No signs and/or symptoms were reported regarding the EENT system. Derm: Skin is pink, warm \T\ dry. Musculoskeletal: Circulation, motion, and sensation intact. Range of motion: intact in all extremities. 21:28 GI: Bowel sounds present X 4 quads. as9 Vital Signs: 19:00 BP 159 / 109; Pulse 65; Resp 16; Temp 96.8; Pulse Ox 98% ; Weight 90.72 kg; Pain 9/10; cm10 19:00 BP 158 / 95; Pulse 68; Resp 20; Temp 97.8; Pulse Ox 97% on R/A; as9 19:30 BP 142 / 115; Pulse 61; Resp 19; Pulse Ox 97% on R/A; as9 20:07 BP 157 / 91; Pulse 60; Resp 19; Pulse Ox 97% on R/A; as9 20:30 BP 146 / 83; Pulse 56; Resp 18; Pulse Ox 96% on R/A; as9 21:07 BP 138 / 99; Pulse 58; Resp 18; Temp 97.7; Pulse Ox 97% on R/A; as9 19:00 Pain Scale: Adult cm10 ED Course: 18:49 Patient arrived in ED. 3 18:58 Joey Ramachandran MD is Attending Physician. rt 19:02 Triage completed. cm10 19:03 Arm band placed on Patient placed in an exam room, on a stretcher. cm10 19:30 Urinalysis w/ reflexes Sent. rv 19:30 Lipase Sent. rv 19:30 CMP Sent. rv 19:30 CBC with Diff Sent. rv 19:31 Inserted saline lock: 20 gauge in right antecubital area, using aseptic technique. as9 Blood collected. 20:06 CT Abd/Pelvis - IV Contrast Only In Process Unspecified. EDMS 20:12 Patient has correct armband on for positive identification. Fall risk band placed. Bed as9 in low position. Call light in reach. Side rails up X 1. 21:03 Jerod Raya MD is Referral Physician. rt 21:24 No provider procedures requiring assistance completed. IV discontinued, intact, as9 bleeding controlled, No redness/swelling at site. Pressure dressing applied. 21:27 Provided Education on: discharge instruction and medication explained well to the as9 patient and family. Administered Medications: 19:59 Drug: Ondansetron IVP 4 mg IVP once; over 2 minutes Route: IVP; Site: right antecubital;as9 21:25 Follow up: Response: No adverse reaction; Marked relief of symptoms as9 19:59 Drug: morphine IVP or IV 4 mg IVP once over 4 mins Route: IVP; Infused Over: 4 mins; as9 Site: right antecubital; 21:25 Follow up: Response: No adverse reaction; Marked relief of symptoms; Pain is decreased; as9 RASS: Alert and Calm (0) 20:00 Drug: Dicyclomine IM 20 mg IM once Route: IM; Site: right deltoid; as9 21:25 Follow up: Response: No adverse reaction; Marked relief of symptoms as9 Medication: 20:13 VIS not applicable for this client. as9 Outcome: 21:03 Discharge ordered by . rt 21:27 Discharged to home via wheelchair, with family, as9 21:27 Condition: good 21:27 Discharge instructions given to patient, family, Instructed on discharge instructions, follow up and referral plans. medication usage, Demonstrated understanding of instructions, follow-up care, medications, 21:29 Patient left the ED. as9 Signatures: Dispatcher [employer] EDUT Anselmo, Niall, RN RN rv Joey Ramachandran MD MD rt Sandra Manning RN RN cm10 Celia Lucas 3 Papi Mejia RN RN as9 Corrections: (The following items were deleted from the chart) 19:03 19:03 Allergies: Aspirin; cm10 cm10
--- NOTE | 2023-10-26 21:04 | EDPHYS ---
Physician Documentation [facility] Name: Maite Dumont Age: 53 yrs Sex: Female : 1970 Arrival Date: 10/26/2023 Time: 18:46 Bed 8 Private MD: ED Physician Joey Ramachandran HPI: 10/26 19:37 This 53 yrs old Female presents to ER via Wheelchair with complaints of rt Abdominal Pain, Nausea. 19:37 Patient presents to the ED with right lower quadrant pain. Patient was seen in the ED rt about 4 to 5 days ago for the same symptoms, had essentially negative workup. The patient states the pain is persistent, somewhat worsened today. Reports some nausea. Reports increased frequency of bowel movements but denies diarrhea. Denies other acute complaints, symptoms are aching nature, nonradiating, moderate severity, no other aggravating or elevating factors.. Historical: - Allergies: 19:03 No Known Allergies; cm10 - PMHx: 19:03 Hypertension; cm10 - PSHx: 19:03 section; Cholecystectomy; Right Ankle; cm10 - Immunization history:: Adult Immunizations up to date. - Social history:: Smoking status: Patient denies any tobacco usage or history of. - Family history:: not pertinent. ROS: 19:37 Constitutional: Negative for fever, chills, and weight loss, Cardiovascular: Negative rt for chest pain, palpitations, and edema, Respiratory: Negative for shortness of breath, cough, wheezing, and pleuritic chest pain, MS/Extremity: Negative for injury and deformity, Skin: Negative for injury, rash, and discoloration, Neuro: Negative for headache, weakness, numbness, tingling, and seizure, Psych: Negative for depression, anxiety, suicide ideation, homicidal ideation, and hallucinations, 19:37 Abdomen/GI: Positive for abdominal pain, vomiting, Exam: 19:37 Constitutional: This is a well developed, well nourished patient who is awake, alert, rt and in no acute distress. Head/Face: Normocephalic, atraumatic. Chest/axilla: Normal chest wall appearance and motion. Nontender with no deformity. No lesions are appreciated. Cardiovascular: Regular rate and rhythm with a normal S1 and S2. No gallops, murmurs, or rubs. Normal PMI, no JVD. No pulse deficits. Respiratory: Lungs have equal breath sounds bilaterally, clear to auscultation and percussion. No rales, rhonchi or wheezes noted. No increased work of breathing, no retractions or nasal flaring. Skin: Warm, dry with normal turgor. Normal color with no rashes, no lesions, and no evidence of cellulitis. MS/ Extremity: Pulses equal, no cyanosis. Neurovascular intact. Full, normal range of motion. Neuro: Awake and alert, GCS 15, oriented to person, place, time, and situation. Cranial nerves II-XII grossly intact. Motor strength 5/5 in all extremities. Sensory grossly intact. Cerebellar exam normal. Normal gait. 19:37 Abdomen/GI: Tenderness to the right lower quadrant with mild guarding, no rebound, no abdominal distention, Vital Signs: 19:00 BP 159 / 109; Pulse 65; Resp 16; Temp 96.8; Pulse Ox 98% ; Weight 90.72 kg; Pain 9/10; cm10 19:00 BP 158 / 95; Pulse 68; Resp 20; Temp 97.8; Pulse Ox 97% on R/A; as9 19:30 BP 142 / 115; Pulse 61; Resp 19; Pulse Ox 97% on R/A; as9 20:07 BP 157 / 91; Pulse 60; Resp 19; Pulse Ox 97% on R/A; as9 20:30 BP 146 / 83; Pulse 56; Resp 18; Pulse Ox 96% on R/A; as9 21:07 BP 138 / 99; Pulse 58; Resp 18; Temp 97.7; Pulse Ox 97% on R/A; as9 19:00 Pain Scale: Adult cm10 MDM: 19:02 Patient medically screened. rt 21:04 Differential diagnosis: Nonspecific abd pain, pancreatitis, appendicitis, rt diverticulitis. Data reviewed: vital signs, nurses notes, lab test result(s), radiologic studies. I considered the following discharge prescriptions or medication management in the emergency department Medications were administered in the Emergency Department. See MAR. Independent interpretation of the following test(s) in the Emergency Department CT Scan: My interpretation is No bowel obstruction syndrome interpretation of CT scan images. Test considered but Not performed: Ultrasound Symptoms not consistent with an ovarian pathology, had a negative ultrasounds done just a few days ago. Does not believe that she requires repeat pelvic ultrasound. Care significantly affected by the following chronic conditions: Hypertension. Counseling: I had a detailed discussion with the patient and/or guardian regarding the historical points, exam findings, and any diagnostic results supporting the discharge/admit diagnosis, lab results, radiology results, the need for outpatient follow up, to return to the emergency department if symptoms worsen or persist or if there are any questions or concerns that arise at home. 10/26 19:07 Order name: CBC with Diff; Complete Time: 20:35 rt 10/26 19:07 Order name: CMP; Complete Time: 20:35 rt 10/26 19:07 Order name: Lipase; Complete Time: 20:35 rt 10/26 19:07 Order name: Urinalysis w/ reflexes; Complete Time: 20:35 rt 10/26 19:07 Order name: CT Abd/Pelvis - IV Contrast Only; Complete Time: 20:56 rt 10/26 19:07 Order name: IV Saline Lock; Complete Time: 19:16 rt 10/26 19:07 Order name: Labs collected and sent; Complete Time: 19:16 rt Administered Medications: 19:59 Drug: Ondansetron IVP 4 mg IVP once; over 2 minutes Route: IVP; Site: right antecubital;as9 21:25 Follow up: Response: No adverse reaction; Marked relief of symptoms as9 19:59 Drug: morphine IVP or IV 4 mg IVP once over 4 mins Route: IVP; Infused Over: 4 mins; as9 Site: right antecubital; 21:25 Follow up: Response: No adverse reaction; Marked relief of symptoms; Pain is decreased; as9 RASS: Alert and Calm (0) 20:00 Drug: Dicyclomine IM 20 mg IM once Route: IM; Site: right deltoid; as9 21:25 Follow up: Response: No adverse reaction; Marked relief of symptoms as9 Disposition Summary: 10/26/23 21:03 Discharge Ordered Notes: Location: Home rt Condition: Stable rt Diagnosis - Abdominal pain, unspecified rt Followup: rt - With: Jerod Raya MD - When: 5 - 6 days - Reason: Discharge Instructions: - Discharge Summary Sheet rt - Abdominal Pain, Adult rt Forms: - Medication Reconciliation Form rt - Thank You Letter rt - Antibiotic Education rt - Prescription Opioid Use rt - Patient Portal Instructions rt - Leadership Thank You Letter rt Prescriptions: - ondansetron 4 mg Oral Tablet,disintegrating - take 1 tablet ORAL route every 6 hours as needed for nausea and vomiting; 18 rt tablet; Refills: 0, Product Selection Permitted - Tramadol 50 mg Oral Tablet - take 1 tablet ORAL route every 8 hours as needed; 12 tablet; Refills: 0, rt Product Selection Permitted Signatures: Dispatcher [employer] EDJoey Quintana MD MD rt Sandra Manning RN RN cm10 Papi Mejia RN RN as9 Corrections: (The following items were deleted from the chart) 19:03 19:03 Allergies: Aspirin; cm10 cm10
[2023-10-26 22:58] VITALS: BP 138/99; TEMP 97.7; O2SAT 97
== END ==
LOC: ER 18:46
DX: R10.31 Right lower quadrant pain (principal)
CPT/HCPCS: 36415; 74177; 80053; 81001; 83690; 85025; 96372; 96374; 96375; 99284; J0500; J2405; Q9967